=== PATIENT | female | born 1975 | race Caucasian/White ===

== ENCOUNTER → 2016-04-28 | Outpatient (CLI) | payer OTHER ==
[~2016-04-28] MED LIST: ATV/1 PO; CIPR-255 PO; IBUP-1050 PO; LISI-787 PO; LORA-741 PO; MULT1CAP3 PO; OMEP20CA9 PO; OXYC-57 PO; PHEN-876 PO; SULF800T23 PO
--- NOTE | 2016-04-28 14:43 | DIAGNOSTIC IMAGING REPORT ---
LEFT KNEE 4 OR MORE VIEWS CLINICAL HISTORY: Left knee instability and locking. COMPARISON: Left knee radiograph October 11, 2015. FINDINGS: Alignment of the left knee is in anatomic. There is no acute fracture. No osseous lesion is present. There is a suspected left knee joint effusion. Mild narrowing of the patellofemoral compartment is noted. Tricompartmental osteophytosis has increased since prior exam of October 11, 2015. IMPRESSION: 1. No acute fracture. 2. Mild to moderate arthritis of the left knee which has progressed since prior exam. 3. Suspected left knee joint effusion. Electronically signed by: Jerad Goldstein M.D. 04/28/2016 2:42 PM Dictated Date/Time: 04/28/2016 2:41 PM
== END | disposition home or self-care (01) ==
LOC: C.RAD1850 14:06
PROVIDERS: ATTEND Nurse Practitioner Adult Health
DX: M25.362 Other instability, left knee (principal); M23.92 Unspecified internal derangement of left knee; M25.562 Pain in left knee

== ENCOUNTER → 2016-05-16 | Outpatient (CLI) | payer OTHER ==
[2016-05-16 10:40] LABS: BASO % 0.3 %; BASO ABS # 0.03 K/uL (0-0.2); COMPLETE YES; EOS % 2.9 %; HEMATOCRIT 42.8 % (37-47); IG% 0.2 %; LYMPH % 34.7 %; LYMPH ABS # 3.49 K/uL (1.2-3.4); MEAN CELL VOLUME 83.3 fL (80-100); MEAN CORPUSCULAR HEMOGLOBIN 28.8 pg (25-34); MEAN CORPUSCULAR HGB CONC 34.6 g/dl (32-36); MEAN PLATELET VOLUME 9.6 fL (7.4-10.4); NEUT % 56.9 %; PLATELET COUNT 329 K/uL (130-400); RED BLOOD COUNT 5.14 M/uL (4.2-5.4); WHITE BLOOD COUNT 10.06 K/uL (4.8-10.8)
[2016-05-16 12:59] LABS: BLOOD UREA NITROGEN 17 mg/dl (7-18); BUN/CREATININE RATIO 18.2 (10-20); CALCIUM 9.5 mg/dl (8.5-10.1); CARBON DIOXIDE 26 mmol/L (21-32); CHLORIDE 106 mmol/L (98-107); CHOLESTEROL 201 mg/dl (0-200); CREATININE 0.93 mg/dl (0.60-1.20); GLUCOSE 99 mg/dl (70-99); POTASSIUM 3.9 mmol/L (3.5-5.1); SODIUM 141 mmol/L (136-145); TRIGLYCERIDES 109 mg/dl (0-150); VERY LOW DENSITY LIPOPROT CALC 22 mg/dl
[2016-05-16 13:10] LABS: CHOLESTEROL/HDL RATIO 4.4; HDL CHOLESTEROL 46 mg/dl; LDL CHOLESTEROL CALCULATED 133 mg/dl
== END | disposition home or self-care (01) ==
LOC: C.LAB 10:01
PROVIDERS: ATTEND Nurse Practitioner Adult Health
DX: I10 Essential (primary) hypertension (principal); R53.83 Other fatigue; F32.9 Major depressive disorder, single episode, unspecified; Z13.220 Encounter for screening for lipoid disorders

== ENCOUNTER 2016-05-21 10:01 | Emergency (ER) | payer OTHER ==
[~2016-05-21] VITALS: Ht 165.1 cm; Wt 92.6 kg
[~2016-05-21 10:01] MED LIST changes: -ATV/1 PO; -MULT1CAP3 PO; -OMEP20CA9 PO; -OXYC-57 PO
[2016-05-21 10:10] VITALS: TEMP 36.7; Ht 165.1 cm; Wt 92.6 kg
--- NOTE | 2016-05-21 10:28 | EMERGENCY ROOM VISIT NOTE ---
History Report prepared by Ben: Rafael Bhatia Under the Supervision of: Dr. Eris Clements D.O. First contact with patient: 10:18 Chief Complaint: KNEEPAIN Stated Complaint: SEVERE LEFT KNEE PAIN History of Present Illness The patient is a 41 year old female who presents to the Emergency Room with complaints of persistent severe left knee pain. The pain is severe and is worsened with movement of the leg. The patient cannot walk secondary to pain. She also describes shooting pain to her hip. The patient tore her ACL and meniscus 7 years ago, and has had problems with the knee since. She did have knee surgery. The patient does not have a knee immobilizer at home. The patient is scheduled to follow up with [facility] Orthoped[facility] next week. She had an Ativan this morning. Source of History: patient Position: knee (left) Symptom Intensity: severe Quality: other (shooting) Timing: other (persistent) Modifying Factors (Worsening): movement Review of Systems See HPI for pertinent positives and negatives. A total of ten systems were reviewed and were otherwise negative. Past Medical & Surgical Medical Problems: (1) Anxiety (2) Bipolar disorder (3) Bronchitis (4) Clostridium difficile diarrhea (5) Dehydration (6) Depression (7) Diverticulitis (8) Diverticulitis (9) Dizziness (10) Gastroparesis (11) History of colonic diverticulitis (12) History of shingles (13) Influenza (14) Intractable vomiting (15) Nausea & vomiting (16) Nausea, vomiting, and diarrhea (17) Nausea, vomiting, and diarrhea (18) Palpitations (19) Pneumonia (20) Shoulder dislocation Surgical Problems: (1) H/O section (2) H/O left knee surgery (3) Hx of cholecystectomy Family History Diabetes mellitus FH: cancer FH: gallbladder disease FH: lung disease FHx: heart disease Hypertension Social History Smoking Status: Current Every Day Smoker Alcohol Use: none Drug Use: none Marital Status: Housing Status: lives with significant other Occupation Status: employed Current/Historical Medications Scheduled Ibuprofen (Advil), 200-600 MG PO Q4H Lisinopril/Hctz (Zestoretic 20MG/12.5MG), 1 TAB PO DAILY Lorazepam (Ativan), 0.5 MG PO Q6H Allergies Coded Allergies: Prochlorperazine (Verified Allergy, Severe, COMPAZINE, 05/21/16) TONGUE SWELLS, JAW LOCKS Quetiapine (Verified Allergy, Severe, TONGUE SWELLING, 05/21/16) Risperidone (Verified Allergy, Intermediate, , 05/21/16) Ziprasidone (Unverified Allergy, Intermediate, THRUSH, 05/21/16) BEE STING (Verified Allergy, Unknown, severe swelling of limbs and lymphnodes, 05/21/16) Meloxicam (Unverified Allergy, Unknown, rash/lightheaded, 05/21/16) Clavulanic Acid (Verified Adverse Reaction, Mild, VOMITING, 05/21/16) [place] (Unverified Adverse Reaction, Mild, prior OD, 05/21/16) Penicillins (Verified Adverse Reaction, Mild, VOMITING, 05/21/16) augmentin was drug taken when this occured Physical Exam Vital Signs Date Time Temp Pulse Resp B/P Pulse Ox O2 Delivery O2 Flow Rate FiO2 05/21/16 10:10 36.7 107 18 140/74 94 Room Air Physical Exam GENERAL: Awake, alert, well-appearing, in no distress HENT: Normocephalic, atraumatic. Oropharynx unremarkable. EYES: Normal conjunctiva. Sclera non-icteric. NECK: Supple. No nuchal rigidity. FROM. No JVD. RESPIRATORY: Clear to auscultation. CARDIAC: Regular rate, normal rhythm. Extremities warm and well perfused. Pulses equal. ABDOMEN: Soft, non-distended. No tenderness to palpation. No rebound or guarding. No masses. RECTAL: Deferred. MUSCULOSKELETAL: Chest examination reveals no tenderness. The back is symmetrical on inspection without obvious abnormality. There is no CVA tenderness to palpation. No joint edema. LOWER EXTREMITIES: Calves are equal size bilaterally and non-tender. No edema. No discoloration. Mild tenderness of the left knee bilaterally, no anterior drawer, no obvious swelling, no patellar tendon tenderness, quadriceps and patella tendon mechanisms intact, neurovascularly intact distally, no calf tenderness. NEURO: Normal sensorium. No sensory or motor deficits noted. SKIN: No rash or jaundice noted. Medical Decision & Procedures Medications Administered Medications (Trade) Dose Ordered Sig/Dk Route Start Time Stop Time Status Last Admin Dose Admin Oxycodone/ Acetaminophen (Percocet 5-325mg Tab) 1 tab NOW ONCE PO 05/21/16 10:30 05/21/16 10:31 DC 05/21/16 10:30 1 TAB ED Course 1020: The patient was evaluated in room B12b. A complete history and physical exam was performed. 1030: Percocet 5/325 mg tab PO. Medical Decision Differential diagnosis includes sprain, strain, internal derangements of knee, ligamentous injury, tendon injury. This patient has follow-up with orthopedics in [place] on Wednesday. Patient has a prior history of anterior cruciate ligament issues in the left knee and has a prior MRI. Patient's clinical exam does not show any evidence of fracture or quadriceps or patellar tendon mechanism injury. Patient will be placed in a knee immobilizer with pain medicine and with strict follow-up to the orthopedic physician [place] on Wednesday Impression Primary Impression: Sprain of knee Scribe Attestation The scribe's documentation has been prepared under my direction and personally reviewed by me in its entirety. I confirm that the note above accurately reflects all work, treatment, procedures, and medical decision making performed by me. Departure Information Dispostion Home / Self-Care Prescriptions Oxycodone/Acetaminophen 5MG/325MG (PERCOCET 5MG/325MG) Tab 1-2 TAB PO Q4H Y for Pain, #10 TAB Prov: Eris Clements, 05/21/16 Referrals Maris Hernadez CRNP (PCP) Forms HOME CARE DOCUMENTATION FORM, IMPORTANT VISIT INFORMATION, Work Instructions Patient Instructions ED Sprain Knee Collateral Ligaments, My [facility] Work Instructions Return To Work: 3 days Problem Qualifiers Primary Impression: Sprain of knee Encounter type: initial encounter Laterality: left
[2016-05-21] MEDS ORDERED: OXYCODONE/ACETAMINOPHEN 5-325 TAB PO ONE (10:30)
[2016-05-21] MEDS ORDERED: OXYC-57 PO (10:51)
[2016-05-21 11:03] VITALS: BP 136/78; PULSE 90; O2SAT 98
[2017-01-08] MEDS ORDERED: OMEP20CA9 PO (11:56)
[2017-01-08] MEDS ORDERED: ATV/1 PO (11:56)
[2017-01-08] MEDS ORDERED: MULT1CAP3 PO (11:56)
== END 2016-05-21 11:04 | disposition home or self-care (01) ==
LOC: C.EDB 10:05
DX: S83.92XA Sprain of unspecified site of left knee, initial encounter (principal); X58.XXXA Exposure to other specified factors, initial encounter; F41.9 Anxiety disorder, unspecified; F31.9 Bipolar disorder, unspecified; K31.84 Gastroparesis; K57.92 Diverticulitis of intestine, part unspecified, without perforation or abscess without bleeding; F17.200 Nicotine dependence, unspecified, uncomplicated; Z90.49 Acquired absence of other specified parts of digestive tract; Z98.890 Other specified postprocedural states; Z88.0 Allergy status to penicillin; Z88.8 Allergy status to other drugs, medicaments and biological substances; Z91.030 Bee allergy status

== ENCOUNTER → 2016-07-30 | Outpatient (CLI) | payer OTHER ==
[~2016-07-30] MED LIST changes: +ATV/1 PO; -CIPR-255 PO; +MULT1CAP3 PO; +OMEP20CA9 PO; +OXYC-57 PO; -PHEN-876 PO; -SULF800T23 PO
== END | disposition home or self-care (01) ==
LOC: C.LABSPEC 17:24
PROVIDERS: ATTEND Nurse Practitioner Adult Health
DX: R30.0 Dysuria (principal)

== ENCOUNTER 2016-10-29 05:54 | Emergency (ER) | payer OTHER ==
[~2016-10-29] VITALS: Ht 162.6 cm; Wt 93.4 kg
[~2016-10-29 05:54] MED LIST changes: -ATV/1 PO; -MULT1CAP3 PO; -OMEP20CA9 PO
[2016-10-29 05:58] VITALS: BP 151/90; PULSE 104; TEMP 36.7; O2SAT 97; Ht 162.6 cm; Wt 93.4 kg
--- NOTE | 2016-10-29 06:13 | EMERGENCY ROOM VISIT NOTE ---
History Report prepared by Ben: Savannah Chambers Under the Supervision of: Dr. Maria Guadalupe Hernandez D.O. First contact with patient: 06:02 Chief Complaint: EYE PAIN Stated Complaint: LEFT EYE PAIN History of Present Illness The patient is a 41 year old female who presents to the Emergency Room with complaints of constant left eye pain beginning yesterday. The patient describes the pain as a pressure sensation. She notes that she was at work yesterday when she noticed her left eye felt sore. The patient also notes mild swelling around the eye. She is experiencing a sore throat and chills. The patient denies cough , vomiting, nausea, fevers, or a history of diabetes. She does wear glasses for nearsightedness. She has no history of eye trauma. The patient denies pain with movement of the eyes. She has had sinus infections. Source of History: patient Onset: yesterday Position: eye (left) Quality: pressure Timing: constant Associated Symptoms: + chills, + sorethroat, No fevers, No cough, No vomiting Review of Systems See HPI for pertinent positives & negatives. A total of 10 systems reviewed and were otherwise negative. Past Medical & Surgical Medical Problems: (1) Anxiety (2) Bipolar disorder (3) Bronchitis (4) Clostridium difficile diarrhea (5) Dehydration (6) Depression (7) Diverticulitis (8) Diverticulitis (9) Dizziness (10) Gastroparesis (11) History of colonic diverticulitis (12) History of shingles (13) Influenza (14) Intractable vomiting (15) Nausea & vomiting (16) Nausea, vomiting, and diarrhea (17) Nausea, vomiting, and diarrhea (18) Palpitations (19) Pneumonia (20) Shoulder dislocation Surgical Problems: (1) H/O section (2) H/O left knee surgery (3) Hx of cholecystectomy Family History Diabetes mellitus FH: cancer FH: gallbladder disease FH: lung disease FHx: heart disease Hypertension Social History Smoking Status: Current Every Day Smoker Alcohol Use: none Drug Use: none Marital Status: Housing Status: lives with significant other Occupation Status: employed Current/Historical Medications Scheduled Ibuprofen (Advil), 200-600 MG PO Q4H Lisinopril/Hctz (Zestoretic 20MG/12.5MG), 1 TAB PO DAILY Lorazepam (Ativan), 0.5 MG PO Q6H Allergies Coded Allergies: Prochlorperazine (Verified Allergy, Severe, COMPAZINE, 10/29/16) TONGUE SWELLS, JAW LOCKS Quetiapine (Verified Allergy, Severe, TONGUE SWELLING, 10/29/16) Risperidone (Verified Allergy, Intermediate, , 10/29/16) Ziprasidone (Verified Allergy, Intermediate, THRUSH, 10/29/16) [place] (Verified Allergy, Unknown, severe swelling of limbs and lymphnodes, 10/29/16) Meloxicam (Verified Allergy, Unknown, rash/lightheaded, 10/29/16) Clavulanic Acid (Verified Adverse Reaction, Mild, VOMITING, 10/29/16) [place] (Verified Adverse Reaction, Mild, prior OD, 10/29/16) Penicillins (Verified Adverse Reaction, Mild, VOMITING, 10/29/16) augmentin was drug taken when this occured Physical Exam Vital Signs Date Time Temp Pulse Resp B/P (MAP) Pulse Ox O2 Delivery O2 Flow Rate FiO2 10/29/16 05:58 36.7 104 18 151/90 97 Room Air Physical Exam HEENT: Head - Slight fullness in area of left maxillary sinus and slightly tender to palpation in that area. Pupils are equal, round, and reactive to light. Extraocular eye muscles are intact, and sclera are anicteric. There is no scleral injection. There is absolutely no pain with extraocular eye movement. The patient's pain does not seem to be within the orbit or socket of the eye but rather over the left maxilla and zygomatic arch. There are no skin changes noted in that area. Ears - Both TM blocked by cerumen. Nose - moist nasal mucosa without discharge. Mouth - moist buccal mucosa. Oropharynx is nonerythematous and there is no tonsillar exudate or edema noted. Neck: Supple; no JVD, nuchal rigidity, cervical lymphadenopathy. Heart: Regular rate and rhythm. There is a normal S1 and S2 with no murmurs, clicks, or gallops appreciated. Lungs: Clear to auscultation bilaterally with no wheezes, rales, or rhonchi. Abdomen: Soft, completely nontender, nondistended, with good bowel sounds. There are no palpable pulsatile masses or hepatosplenomegaly. There is no guarding, rigidity, or rebound noted. Extremities: No evidence of cyanosis, clubbing, or edema. There are easily palpable peripheral pulses. Skin: warm and dry with good turgor and no rashes. Medical Decision & Procedures ED Course 0603: Past medical records reviewed. The patient was evaluated in room A11. A complete history and physical exam was performed. I suggested that the patient start the antibiotic if she had further signs of sinus infection. She should return here to the ER if she develops any symptoms within the eyelike redness to the eye, drainage from the eye or pain. She was also instructed to return to the ER if she developed a fever. Medical Decision The patient is a 41 year old female who presents to the ED with left eye pain. Differential diagnosis includes sinusitis, periorbital cellulitis, orbital cellulitis. The patient noticed some pain with palpation over the left maxilla and zygomatic arch. She thought there was some swelling in that area. On my physical exam, there is very minimal fullness noted in that area. There is no erythema to the skin or warmth to touch. The eye does not seem to be involved at all. This may represent early acute maxillary sinusitis. The patient and antibiotic in case the symptoms worsen. I chose Levaquin as the patient has an allergy to Augmentin and penicillins. She will get this prescription filled if her symptoms persist. Otherwise, she was directed to rest with her head elevated and use NSAIDs for pain. Once the patient was discharged by nursing staff, they informed me that the patient was unhappy with her care. She told the nurse that she has glaucoma and I talked down to her. I did not recognize the patient as being upset with her care. During my evaluation, I asked her if she had any previous problems with her eyes and she said no. I also asked if she had a family history of eye problems and she said she wasn't sure because she was adopted, She believes that maybe a grandmother had glaucoma. Medication Reconcilliation Current Medication List: was personally reviewed by me Blood Pressure Screening Patient's blood pressure: Elevated blood pressure Blood pressure disposition: Elevated BP felt to be situational Impression Primary Impression: Maxilla pain Scribe Attestation The scribe's documentation has been prepared under my direction and personally reviewed by me in its entirety. I confirm that the note above accurately reflects all work, treatment, procedures, and medical decision making performed by me. Departure Information Dispostion Home / Self-Care Referrals Maris Hernadez CRNP (PCP) Forms HOME CARE DOCUMENTATION FORM, IMPORTANT VISIT INFORMATION, WORK / SCHOOL INSTRUCTIONS Patient Instructions My [facility] Additional Instructions Rest with your head elevated. Motrin- 800mg every 6 hours with food for pain Start antibiotics if you have further signs of sinus infection. Return to the ER for wosening symptoms
[2017-01-08] MEDS ORDERED: MULT1CAP3 PO (11:56)
[2017-01-08] MEDS ORDERED: OMEP20CA9 PO (11:56)
[2017-01-08] MEDS ORDERED: ATV/1 PO (11:56)
== END 2016-10-29 06:22 | disposition home or self-care (01) ==
LOC: C.EDB 05:55 → C.EDA 06:22
DX: H57.12 Ocular pain, left eye (principal); R68.84 Jaw pain; R51 Headache; F31.9 Bipolar disorder, unspecified; F17.210 Nicotine dependence, cigarettes, uncomplicated; F41.9 Anxiety disorder, unspecified; Z88.0 Allergy status to penicillin; Z88.9 Allergy status to unspecified drugs, medicaments and biological substances; Z79.899 Other long term (current) drug therapy

== ENCOUNTER → 2017-01-11 | Day surgery (SDC) | payer OTHER ==
[2017-01-08 11:56] VITALS: Ht 163.2 cm; Wt 90.5 kg
[~2017-01-11] VITALS: Ht 163.2 cm; Wt 90.5 kg
[~2017-01-11] MED LIST changes: +ATV/1 PO; +FENTANYL CITRATE INJ 50 MCG/1 ML 2 ML VIAL ONE; -IBUP-1050 PO; +LIDOCAINE HCL 2% 2 ML VIAL (20MG/ML) ONE; -LORA-741 PO; +MULT1CAP3 PO; +OMEP20CA9 PO; -OXYC-57 PO; +PROPOFOL IV EMULSION 10 MG/ML 20 ML VIAL IV ONE; +SODIUM CHLORIDE 0.9% 500ML 500 ML IV ONE
--- NOTE | 2017-01-11 14:46 | Endo History and Physical ---
History & Physical Date of Service: Jan 11, 2017. Chief Complaint: Dyshagia, wt loss, vomiting Referring Physician: Danae Matthews History of Present Illness 41 yo CF who presents for EGD secondary to dysphagia, weight loss and vomiting. Past Surgical History Hx Cardiac Surgery: No Hx Internal Defibrillator: No Hx Pacemaker: No Hx Abdominal Surgery: Yes (SALINA, X 3, LOWER ABDOMINAL HERNIA WITH MESH) Hx of Implantable Prosthesis: No Hx Post-Op Nausea and Vomiting: Yes Hx Cancer Surgery: No Hx Thoracic Surgery: No Hx Orthopedic: Yes (LEFT KNEE ARTHROSCOPY) Hx Urinary Tract Surgery: No Family History None Social History Smoking Status: Current Every Day Smoker Hx Substance Use: No Hx Alcohol Use: No Allergies Coded Allergies: Prochlorperazine (Verified Allergy, Severe, COMPAZINE, 01/08/17) TONGUE SWELLS, JAW LOCKS Quetiapine (Verified Allergy, Severe, TONGUE SWELLING, 01/08/17) Risperidone (Verified Allergy, Intermediate, , 01/08/17) Ziprasidone (Verified Allergy, Intermediate, THRUSH, 01/08/17) Amoxicillin (Verified Allergy, Unknown, GI SYMPTOMS, 01/08/17) BEE [place] (Verified Allergy, Unknown, severe swelling of limbs and lymphnodes, 01/08/17) Meloxicam (Verified Allergy, Unknown, rash/lightheaded, 01/08/17) Clavulanic Acid (Verified Adverse Reaction, Mild, VOMITING, 01/08/17) [place] (Verified Adverse Reaction, Mild, prior OD, 01/08/17) Penicillins (Verified Adverse Reaction, Mild, VOMITING, 01/08/17) augmentin was drug taken when this occured Current Medications Reported Home Medications Medications Dose Route/Sig Max Daily Dose Days Date Category Womens Multi (Multiple Vitamins W/ Minerals) 1 Cap Cap 1 Cap PO QAM 01/08/17 Reported Prilosec (Omeprazole) 20 Mg Cap 20 Mg PO BID 01/08/17 Reported Ativan (Lorazepam) 1 Mg Tab 1 Mg PO DAILY PRN 01/08/17 Reported Zestoretic 20MG/12.5MG (HCTZ/Lisinopril) Tab 1 Tab PO HS 11/05/14 Reported Vital Signs Weight (Kilograms): 90.45 Height (Feet): 5 Height (Inches): 4.25 Date Time Temp Pulse Resp B/P (MAP) Pulse Ox O2 Delivery O2 Flow Rate FiO2 01/11/17 14:19 36.5 68 20 118/63 (81) 94 Room Air Physical Exam General Appearance: WD/WN, no apparent distress Respiratory/Chest: Auscultation: breath sounds normal Cardiovascular: Heart Auscultation: RRR Abdomen: Bowel Sounds: normal Inspection & Palpation: soft, non-distended, no tenderness, guarding & rebound Assessment and Plan Assessment: 41 yo CF who presents for EGD secondary to dysphagia, weight loss and vomiting. Plan: Proceed with EGD.
[2017-01-11 15:24] VITALS: BP 126/62; PULSE 97; O2SAT 98
--- NOTE | 2017-01-11 15:37 | Discharge Instructions ---
Endoscopy Patient Instructions Date / Procedure(s) Performed Jan 11, 2017. EGD Allergy Information Coded Allergies: Prochlorperazine (Verified Allergy, Severe, COMPAZINE, 01/08/17) TONGUE SWELLS, JAW LOCKS Quetiapine (Verified Allergy, Severe, TONGUE SWELLING, 01/08/17) Risperidone (Verified Allergy, Intermediate, , 01/08/17) Ziprasidone (Verified Allergy, Intermediate, THRUSH, 01/08/17) Amoxicillin (Verified Allergy, Unknown, GI SYMPTOMS, 01/08/17) BEE [place] (Verified Allergy, Unknown, severe swelling of limbs and lymphnodes, 01/08/17) Meloxicam (Verified Allergy, Unknown, rash/lightheaded, 01/08/17) Clavulanic Acid (Verified Adverse Reaction, Mild, VOMITING, 01/08/17) [place] (Verified Adverse Reaction, Mild, prior OD, 01/08/17) Penicillins (Verified Adverse Reaction, Mild, VOMITING, 01/08/17) augmentin was drug taken when this occured Discharge Date / Findings Jan 11, 2017. Esophageal stricture s/p dilation Gastritis s/p biopsies Medication Instructions OK to resume all medications today as prescribed Reported Home Medications Medications Dose Route/Sig Max Daily Dose Days Date Category Womens Multi (Multiple Vitamins W/ Minerals) 1 Cap Cap 1 Cap PO QAM 01/08/17 Reported Prilosec (Omeprazole) 20 Mg Cap 20 Mg PO BID 01/08/17 Reported Ativan (Lorazepam) 1 Mg Tab 1 Mg PO DAILY PRN 01/08/17 Reported Zestoretic 20MG/12.5MG (HCTZ/Lisinopril) Tab 1 Tab PO HS 11/05/14 Reported Provider Instructions Activity Restrictions - No exercising or heavy lifting for 24 hours. - Do not drink alcohol the day of the procedure. - Do not drive a car or operate machinery until the day after the procedure. - Do not make any important decisions or sign important papers in 24 hours after the procedure. Following Day: - Return to full activity which may include returning to work/school. Diet Start your diet with liquids and light foods (jello, soup, juice, toast). Then eat your usual diet if not nauseated. Treatment For Common After Affects For mild abdominal pain, bloating, or excessive gas: - Rest - Eat lightly - Lie on right side Follow-Up Information Follow-up with Danae Matthews as scheduled Anesthesia Information What You Should Know You have had a procedure that required some medicine to reduce anxiety and discomfort. This treatment is called moderate sedation. After receiving the treatment, you may be sleepy, but you will be able to breathe on your own. The effects of the treatment may last for several hours. Follow these instructions along with Activity/Diet recommendations noted above: * Do NOT do anything where dizziness or clumsiness would be dangerous. * Rest quietly at home today, then you can be up and about tomorrow. * Have a responsible person stay with you the rest of today. * You may have had an I.V. today. If so, you may take the dressing off later today. Recommendations Call your doctor if: * Trouble breathing * Continuous vomiting for more than 24 hours * Temperature above 101 degrees * Severe abdominal pain or bloating * Pain not relieved by pain medicine ordered * There is increased drainage or redness from any incision * A large amount of rectal bleeding greater than 2-3 tablespoons. (If you had a polyp/s removed or have hemorrhoids, a small amount of blood - from the rectum is to be expected.) * You have any unanswered questions or concerns. IN THE EVENT OF A SERIOUS EMERGENCY, GO TO THE NEAREST EMERGENCY ROOM Your discharge instructions were prepared by provider Manjinder Ross. Patient Instructions Signature Page Yoana Weinstein Patient (or Guardian) Signature/Date: I have read and understand the instructions given to me by my caregivers. Caregiver/RN/Doctor Signature/Date: The above-named patient and/or guardian has received patient instructions on this date. + Original Patient Signature Page (only) stays with chart. Please make copy for patient.
--- NOTE | 2017-01-11 15:41 | Anesthesiology Progress Note ---
Anesthesia Post Op Note Date & Time Jan 11, 2017 at 15:40 Vital Signs Vital Signs Past 12 Hours Date Time Temp Pulse Resp B/P (MAP) Pulse Ox O2 Delivery O2 Flow Rate FiO2 01/11/17 14:19 36.5 68 20 118/63 (81) 94 Room Air Notes Mental Status: alert / awake / arousable, participated in evaluation Pt Amnestic to Procedure: Yes Nausea / Vomiting: adequately controlled Pain: adequately controlled Airway Patency, RR, SpO2: stable & adequate BP & HR: stable & adequate Hydration State: stable & adequate Anesthetic Complications: no major complications apparent
--- NOTE | 2017-01-11 15:42 | GI REPORT ---
Procedure Date: 01/11/2017 3:12 PM Procedure: Upper GI endoscopy Indications: Dysphagia Medicines: Monitored Anesthesia Care Complications: No immediate complications. Estimated Blood Loss: Estimated blood loss: none. Procedure: Pre-Anesthesia Assessment: - Prior to the procedure, a History and Physical was performed, and patient medications and allergies were reviewed. The patient's tolerance of previous anesthesia was also reviewed. The risks and benefits of the procedure and the sedation options and risks were discussed with the patient. All questions were answered, and informed consent was obtained. Prior Anticoagulants: The patient has taken no previous anticoagulant or antiplatelet agents. ASA Grade Assessment: II - A patient with mild systemic disease. After reviewing the risks and benefits, the patient was deemed in satisfactory condition to undergo the procedure. After obtaining informed consent, the endoscope was passed under direct vision. Throughout the procedure, the patient's blood pressure, pulse, and oxygen saturations were monitored continuously. The Scope was introduced through the mouth, and advanced to the second part of duodenum. The upper GI endoscopy was accomplished without difficulty. The patient tolerated the procedure well. Findings: One moderate benign-appearing, intrinsic stenosis was found. This measured 1.6 cm (inner diameter) x less than one cm (in length) and was traversed. A TTS dilator was passed through the scope. Dilation with an 18-19-20 mm balloon (to a maximum balloon size of 20 mm) dilator was performed. The dilation site was examined and showed moderate improvement in luminal narrowing. Localized mild inflammation characterized by erythema was found in the gastric antrum. Biopsies were taken with a cold forceps for histology. The examined duodenum was normal. Impression: - Benign-appearing esophageal stenosis. Dilated. - Gastritis. Biopsied. - Normal examined duodenum. Recommendation: - Resume previous diet. - Continue present medications. - Await pathology results. - Return to primary care physician as previously scheduled. Manjinder Ross, 01/11/2017 3:41:52 PM This report has been signed electronically. Note Initiated On: 01/11/2017 3:12 PM I attest to the content of the Intraoperative Record and orders documented therein, exceptions below
== END | disposition home or self-care (01) ==
LOC: C.GI 13:37
PROVIDERS: ATTEND Internal Medicine
DX: K22.2 Esophageal obstruction (principal); K29.70 Gastritis, unspecified, without bleeding; F17.200 Nicotine dependence, unspecified, uncomplicated; Z79.899 Other long term (current) drug therapy

== ENCOUNTER → 2017-04-23 | Outpatient (CLI) | payer OTHER ==
[~2017-04-23] MED LIST changes: -FENTANYL CITRATE INJ 50 MCG/1 ML 2 ML VIAL ONE; -LIDOCAINE HCL 2% 2 ML VIAL (20MG/ML) ONE; -PROPOFOL IV EMULSION 10 MG/ML 20 ML VIAL IV ONE; -SODIUM CHLORIDE 0.9% 500ML 500 ML IV ONE
--- NOTE | 2017-04-23 11:35 | DIAGNOSTIC IMAGING REPORT ---
THYROID ULTRASOUND CLINICAL HISTORY: Enlarged thyroid. COMPARISON STUDY: None. TECHNIQUE: Sonography of the thyroid gland was performed. FINDINGS: The right thyroid lobe measures 4.4 x 1.4 x 1.5 cm and the left lobe measures 3.7 x 1.5 x 1.2 cm. The isthmus measures 0.2 cm in thickness. There are no suspicious thyroid nodules. Note is made of a 2 mm cystic lesion within the right isthmus junction and a 4 mm cystic lesion within the left inferior thyroid lobe. These represent colloid cysts. IMPRESSION: 1. Several small colloid cysts. No suspicious thyroid nodules. 2. Normal size thyroid gland. Electronically signed by: Jerad Goldstein M.D. 04/23/2017 11:34 AM Dictated Date/Time: 04/23/2017 11:24 AM
== END | disposition home or self-care (01) ==
LOC: C.ULTR 10:09
PROVIDERS: ATTEND Family Medicine
DX: E04.2 Nontoxic multinodular goiter (principal)

== ENCOUNTER → 2017-06-09 | Outpatient (CLI) | payer OTHER ==
[2017-06-09 12:18] LABS: BLOOD UREA NITROGEN 14 mg/dl (7-18); CALCIUM 9.4 mg/dl (8.5-10.1); CARBON DIOXIDE 28 mmol/L (21-32); CREATININE 0.72 mg/dl (0.60-1.20); GLUCOSE 97 mg/dl (70-99); POTASSIUM 3.7 mmol/L (3.5-5.1); SODIUM 138 mmol/L (136-145)
== END | disposition home or self-care (01) ==
LOC: C.LAB 09:47
PROVIDERS: ATTEND Family Medicine
DX: I10 Essential (primary) hypertension (principal); E83.52 Hypercalcemia

== ENCOUNTER → 2017-08-05 | Day surgery (SDC) | payer OTHER ==
[2017-07-29 09:21] VITALS: Ht 162.6 cm; Wt 90.9 kg
--- NOTE | 2017-08-03 15:48 | History and Physical: Surg Cnt ---
History & Physical Date Aug 03, 2017. 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 Past Medical/Surgical History Medical Problems: (1) Anxiety (2) Bipolar disorder (3) Bronchitis (4) Clostridium difficile diarrhea (5) Dehydration (6) Depression (7) Diverticulitis (8) Diverticulitis (9) Dizziness (10) Gastroparesis (11) History of colonic diverticulitis (12) History of shingles (13) Influenza (14) Intractable vomiting (15) Nausea & vomiting (16) Nausea, vomiting, and diarrhea (17) Nausea, vomiting, and diarrhea (18) Palpitations (19) Pneumonia (20) Shoulder dislocation Surgical Problems: (1) H/O section (2) H/O left knee surgery (3) Hx of cholecystectomy Additional History Hepatic Disease: No Endocrine Disorder: No Kidney Disease: No Hypertension: No Heart Disease: No Bleeding Tendencies: No Infectious Diseases: No Allergies Coded Allergies: Prochlorperazine (Verified Allergy, Severe, COMPAZINE, 07/29/17) TONGUE SWELLS, JAW LOCKS Quetiapine (Verified Allergy, Severe, TONGUE SWELLING, 07/29/17) BEE STING (Verified Allergy, Unknown, severe swelling of limbs and lymphnodes, 07/29/17) Hydrocodone (Verified Allergy, Unknown, ITCHING, 07/29/17) Meloxicam (Verified Allergy, Unknown, rash/lightheaded, 07/29/17) Risperidone (Unverified Adverse Reaction, Intermediate, , 08/03/17 ) Ziprasidone (Unverified Adverse Reaction, Intermediate, THRUSH, 08/03/17) Clavulanic Acid (Verified Adverse Reaction, Mild, VOMITING, 07/29/17) [place] (Verified Adverse Reaction, Mild, prior OD, 07/29/17) Penicillins (Verified Adverse Reaction, Mild, VOMITING, 07/29/17) augmentin was drug taken when this occured Amoxicillin (Unverified Adverse Reaction, Unknown, GI SYMPTOMS, 08/03/17) Home Medications Scheduled Ergocalciferol (Vitamin D 78914 Unit), 50,000 UNIT PO WK Lisinopril/Hctz (Zestoretic 20MG/12.5MG), 1 TAB PO HS Multiple Vitamins W/ Minerals (Womens Multi), 1 CAP PO QAM Omeprazole (Prilosec), 20 MG PO BID Scheduled PRN Lorazepam (Ativan), 1 MG PO DAILY PRN for Anxiety Physical Examination Skin: warm/dry, no rash Eyes: normal inspection, EOMI, sclerae normal ENT: + pertinent finding (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
[~2017-08-05] VITALS: Ht 162.6 cm; Wt 90.9 kg
[~2017-08-05] MED LIST changes: +ATROPINE SULFATE 0.1 MG/ML 5ML SYR IV PRN; +BACITRACIN OINT 15 GM TUBE ONE; +CEFAZOLIN 2000MG IV PUSH 15 ML IV SCH; +CHECK SCOPOLAMINE PATCH PLACEMENT SCH; +DEXAMETHASONE SOD INJ 4 MG/ML VIAL IV PRN; +DEXAMETHASONE SOD INJ 4 MG/ML VIAL ONE; +ERGO500037 PO; +EpHEDrine SULFATE INJ 50 MG/ML AMP IV PRN; +EpINEphrine INJ 1MG/ML AMP 1 MG/ML AMP ONE; +FENTANYL CITRATE INJ 50 MCG/1 ML 2 ML VIAL IV PRN; +FENTANYL CITRATE INJ 50 MCG/1 ML 2 ML VIAL ONE; +GELATIN SPONGE 12-7MM ONE; +GLYCOPYRROLATE INJ 0.2 MG/ML VIAL ONE; +KETOROLAC TROMETHAMINE 30 MG/ML VIAL IV. PRN; +LABETALOL HCL IV 5 MG/ML 20ML IV PRN; +LACTATED RINGER'S 1000ML 1,000 ML IV SCH; +LIDO 2%/EPINEPHRINE 1:100000 20 ML VIAL INFIL ONE; +LIDOCAINE 4% MPF SOAK 5 ML = 1 DOSE TOP ONE; +LIDOCAINE HCL 2% 2 ML VIAL (20MG/ML) ONE; +METOCLOPRAMIDE HCL INJ 5 MG/ML 2 ML VIAL IV PRN; +MIDAZOLAM HCL 1 MG/ML 2ML VIAL ONE; +MoRPHine SULFATE 10 MG/ML CARP/VIAL IV PRN; +MoRPHine SULFATE 2 MG/ML CARP IV PRN; +NEOSTIGMINE METHYLSULFATE 5 MG/5 ML SYR ONE; +ONDANSETRON INJ 2 MG/ML 2 ML VIAL IV PRN; +ONDANSETRON INJ 2 MG/ML 2 ML VIAL ONE; +PHENYLEPHRINE 100MCG/ML 5ML SYR IV PRN; +PROPOFOL IV EMULSION 10 MG/ML 20 ML VIAL IV ONE; +ROCURONIUM BROMIDE 10 MG/ML 5 ML VIAL IV ONE; +SCOPOLAMINE 1.5 MG TDSY TD ONE; +SCOPOLAMINE 1.5 MG TDSY TD SCH; +SODIUM CHLORIDE 0.9% 1000ML 1,000 ML IV SCH; +TRAM-10 PO
--- NOTE | 2017-08-05 10:02 | History & Physical Bridge Note ---
H&P Re-Evaluation Bridge Note: I have examined the patient, reviewed the History & Physical and in the interval since the performance of the History & Physical I have noted the following changes of clinical significance: No changes noted
--- NOTE | 2017-08-05 10:05 | Discharge Instructions-SurgCtr ---
Discharge Instructions Date of Service Aug 05, 2017. Visit Reason for Visit: Right Vocal Cord Polyp, Septal Deviation Discharge Discharge Diagnosis / Problem: same Discharge Goals Goal(s): Improve function Activity Recommendations Activity Limitations: resume your previous activity Anesthesia . Post Anesthesia Instructions: If you have had General Anesthesia or IV Sedation: * Do not drive today. * Resume driving when surgeon permits. * Do not make important decisions or sign legal documents today. * Call surgeon for: 1. Temperature elevations greater than 101 degrees F. 2. Uncontrollable pain. 3. Excessive bleeding. 4. Persistent nausea and vomiting. 5. Medication intolerance (nausea, vomiting or rash). * For nausea and vomiting use only clear liquids such as: tea, soda, bouillon until nausea subsides, then gradually increase diet as tolerated. * If you have any concerns or questions, call your surgeon's office. If physician is unavailable and it is an emergency, call 911 or go to the nearest emergency room. . Instructions / Follow-Up Instructions / Follow-Up ACTIVITY RECOMMENDATIONS: * Being up and around is good, but no strenuous activity, heavy lifting or physical exertion for one week. * Keep your head elevated 30 degrees when lying down or sleeping. * Do not blow your nose for 48 hours, sniff back instead. * Avoid hot showers. OVER THE COUNTER MEDICATIONS: * You may use Tylenol * Avoid aspirin or aspirin containing products, e.g. as they may increase bleeding. SPECIAL CARE INSTRUCTIONS: * Expect to have bloody drainage from your nose and/or down your throat for one to three days. Change drip pad as needed. * Begin irrigating your nose with saline solution today, at least six to ten times per day and sniff back to help remove old clots or crust. * You may experience nasal and facial congestion, pain and pressure, this is normal. * Please call with any significant and/or progressive pain, redness, swelling around the eyes, visual changes, fever of 101.5 degrees F, active bleeding or any problems or concerns. * If active bleeding occurs, spray the nose three times at one minute intervals with Afrin spray and call or cell phone: . If unable to reach the doctor, go to the nearest Emergency Department. Special Diet: * Avoid extremely hot fluids. FOLLOW UP VISIT: Follow-up Visit with Dr. Elam If not already scheduled, please call to schedule. Diet Recommendations Home Diet: no limitations Pending Studies Studies pending at discharge: no Medical Emergencies . Who to Call and When: Medical Emergencies: If at any time you feel your situation is an emergency, please call 911 immediately. . Non-Emergent Contact Non-Emergency issues call your: Primary Care Provider . . "Provider Documentation" section prepared by Jeanette Elam. . [place] Drug Monitoring Program Search Results: no issues identified
[2017-08-05 11:56] VITALS: TEMP 36.7
[2017-08-05 12:21] VITALS: BP 141/74; PULSE 52; O2SAT 95
--- NOTE | 2017-08-05 12:25 | Anesthesia Progress Nt - [facility] ---
Anesthesia Post Op Note Date & Time Aug 05, 2017 at 12:24 Vital Signs Pain Intensity: 0 Vital Signs Past 12 Hours Date Time Temp Pulse Resp B/P (MAP) Pulse Ox O2 Delivery O2 Flow Rate FiO2 08/05/17 12:21 52 16 141/74 (96) 95 Room Air 08/05/17 11:56 36.7 52 16 134/82 (99) 96 Room Air 08/05/17 11:51 125/83 08/05/17 11:49 60 20 08/05/17 11:49 61 20 97 08/05/17 11:48 57 16 98 08/05/17 11:48 58 16 08/05/17 11:46 128/70 08/05/17 11:46 36.5 54 16 128/70 95 Room Air 08/05/17 11:43 60 16 08/05/17 11:43 60 16 98 08/05/17 11:42 57 15 98 08/05/17 11:42 57 15 08/05/17 11:41 127/78 08/05/17 11:37 66 17 98 08/05/17 11:37 68 17 08/05/17 11:36 113/80 08/05/17 11:33 55 8 98 08/05/17 11:33 56 8 08/05/17 11:31 119/74 08/05/17 11:28 61 19 99 08/05/17 11:28 62 19 08/05/17 11:26 122/77 08/05/17 11:25 123/71 08/05/17 11:23 55 15 08/05/17 11:23 57 15 100 08/05/17 11:21 86/76 08/05/17 11:18 63 17 08/05/17 11:18 64 17 100 08/05/17 11:16 121/60 08/05/17 11:13 60 20 08/05/17 11:13 59 20 100 08/05/17 11:11 114/78 08/05/17 11:08 67 18 08/05/17 11:08 67 18 99 08/05/17 11:06 134/76 08/05/17 11:03 77 18 100 08/05/17 11:03 78 18 08/05/17 11:01 134/91 08/05/17 11:00 124/91 08/05/17 10:58 99 21 174/109 99 08/05/17 10:58 99 21 08/05/17 10:58 36.7 99 16 174/109 99 Humidified Oxygen 6 Diffusion Mask 08/05/17 09:01 36.4 71 16 135/80 (98) 97 Room Air Notes Mental Status: alert / awake / arousable, participated in evaluation Pt Amnestic to Procedure: Yes Nausea / Vomiting: adequately controlled Pain: adequately controlled Airway Patency, RR, SpO2: stable & adequate BP & HR: stable & adequate Hydration State: stable & adequate Anesthetic Complications: no major complications apparent
--- NOTE | 2017-08-05 14:15 | OPERATIVE REPORT ---
DATE OF OPERATION: 08/05/2017 PREOPERATIVE DIAGNOSES: Septal deviation and right vocal cord polyp. POSTOPERATIVE DIAGNOSES: Same. PROCEDURE: Direct laryngoscopy with micro excision of right vocal cord polyp and endoscopic septoplasty. SURGEON: Jeanette Elam MD ANESTHESIA: General endotracheal. COMPLICATIONS: None. BLOOD LOSS: 10 mL. HISTORY OF PRESENT ILLNESS: This 42-year-old lady presented with persistent hoarseness, found to have a large right vocal cord polyp. She also has significant septal deviation to the left with obstruction. DESCRIPTION OF PROCEDURE: The patient brought to the operating room and placed in supine position. General endotracheal anesthesia was induced, prepped and draped in a usual sterile manner. The Dedo laryngoscope was used. Suspension and microlaryngoscopy was performed. Epiglottis, vallecula, pyriform sinus areas were normal. The endolarynx showed a large right vocal cord polyp, which was edematous and reddish. The microscope was used and the right vocal cord was grasped with upbiting cup forceps and the polyp was excised using the cup forceps and upbiting scissors, preserving the mucosa at the leading edge of the vocal cord excising the polyp from posteriorly to anteriorly. The laryngoscope was withdrawn and attention was turned to the nose. Endoscopic septoplasty was performed using the 0 degree endoscope visualizing the septum, which was injected with 2% Xylocaine with 1:100,000 strength epinephrine. The incision was made along the spur projecting to the left from posteriorly to anteriorly using the 15 blade and then elevating superior and inferior tunnels to isolate the spur and then removing the spur using the 15 blade and the Morgan dissector and the Bautista forceps via superior inferior tunnels and via bilateral posterior tunnels. This returned the septum to the midline. The septum was packed with a single piece of Gelfoam. The patient tolerated the procedure well and was taken to recovery area in satisfactory condition. I attest to the content of the Intraoperative Record and any orders documented therein. Any exception s are noted below.
== END | disposition home or self-care (01) ==
LOC: X.SURG 08:28
PROVIDERS: ATTEND Otolaryngology
DX: J34.2 Deviated nasal septum (principal); J38.1 Polyp of vocal cord and larynx; I10 Essential (primary) hypertension; K21.9 Gastro-esophageal reflux disease without esophagitis; F17.200 Nicotine dependence, unspecified, uncomplicated

== ENCOUNTER 2020-02-20 16:05 | Observation (INO) ==
[2020-02-20] MEDS ORDERED: diphenhydrAMINE 50 MG/ML VIAL IV STA (16:34)
[2020-02-20] MEDS ORDERED: ONDANSETRON INJ 2 MG/ML 2 ML VIAL IV STA (16:34)
[2020-02-20] MEDS ORDERED: ALBUTEROL HFA 8 GM INHALER INH ONE (16:34)
[2020-02-20] MEDS ORDERED: SODIUM CHLORIDE 0.9% 1000ML 500 ML IV ONE ×2 (16:34→18:19)
--- NOTE | 2020-02-20 16:47 | Emergency Department Note ---
Impression & Plan SOB (shortness of breath), Pneumonia, Acute thoracic back pain, Failure of outpatient treatment ED Provider Note NAME: CRISTOBAL MARTINEZ AGE: 45 SEX: F : 1975 ARRIVES VIA: Walk-In INFORMANT: [Patient] ED PROVIDER(S): [Mohan Garcia MD] CHIEF COMPLAINT: Shortness of breath and thoracic pain HISTORY OF PRESENT ILLNESS: The patient is a 45-year-old female who has had thoracic back pain for around 10 days. Initially, she thought she pulled a muscle. It was only one-sided. She saw her doctor who put her on Diclofenac and Flexeril. This really did not help much. She was in the ED on February 16, 3 days ago. She was found to have bilateral opacities on chest CT, there was no PE. Her Covid test was negative. She was discharged with prednisone and doxycycline. The patient had initially consented to a hospital stay but they decided to go home. Since she was not hypoxic, a discharge home was felt reasonable. Patient states that the pain in the thoracic area is now bilateral. It is worse with movement. She feels more short of breath especially with exertion. She has had some chills although no documented fever. Yesterday, she had diarrhea, none today. She has not had any vomiting. Patient states the pain is a 7 on a scale of 1-10. She called her doctor today. She saw the doctor's office via televisit. She was referred back to the ED. REVIEW OF SYSTEMS: See HPI for pertinent positives and negatives. A total of ten systems were reviewed and were otherwise negative. PMHx/PSHx: See Below SOCIAL HISTORY: See Below. PHYSICAL EXAM: GENERAL: Patient is in mild distress from pain. HEENT: No acute trauma, normocephalic atraumatic, mucous membranes moist, no nasal congestion, no scleral icterus. NECK: No stridor, no adenopathy, no meningismus, trachea is midline. LUNGS: She is in some mild respiratory distress, there is no wheezing. Her breath sounds are diminished bilaterally. HEART: Tachycardic, regular rhythm, no murmurs. ABDOMEN: Soft, nontender, bowel sounds positive, no hernias, no peritonitis. EXTREMITIES: No cyanosis or edema, full range of motion of all the joints without pain or difficulty, no signs for acute trauma. NEUROLOGIC: Oriented x 3, no acute motor or sensory deficits, no focal weakness. SKIN: No rash, no jaundice, no diaphoresis. DIFFERENTIAL DIAGNOSIS: Reactive airway disease, pneumonia, pneumothorax, COPD, influenza, Covid, CHF, infections, cardiac ischemia, pulmonary embolism, musculoskeletal, gastrointestinal, as well as other pathologies. EMERGENCY DEPARTMENT COURSE/PROCEDURES: ECG: Indication was tachycardia and shortness of breath. The ECG shows a sinus tachycardia with a rate of 101. There is no ST elevation, no PVCs. The QTc is 456. Continuous Cardiac Monitoring: An order was placed for continuous cardiac monitoring. The monitor shows a rate of 75 with normal sinus rhythm. Critical Care Note: I have personally spent 38 minutes of critical care time in the direct management of this patient. This includes bedside care, interpretation of diagnostic studies, and testing, discussion with consultants, patient, and family members, and other required patient management activities. This 38 minutes is in excess of all separately billable procedures. MEDICAL DECISION MAKING: There is a moderate leukocytosis at 16,000, the value today is higher than it was with her last visit. There is a normal hemoglobin and platelet count. There is no coagulopathy. VBG does not show acidosis or significant hypoxia. No significant electrolyte abnormality or kidney failure. Lactic acid level was not elevated making sepsis less likely. There was no liver enzyme elevation. ECG showed a sinus tachycardia, no acute ischemia. Cardiac enzyme testing x1 is not consistent with acute cardiac injury. Coronavirus testing returned neg ative. Bio fire testing returned negative. Chest film shows what appears to be a developing a left lung infiltrate. There is no pneumothorax. The patient looked uncomfortable on exam. She was in some mild distress. She received IV saline for hydration, 1 L was given. She was given IV Zofran for nausea, IV morphine for pain. She received IV ceftriaxone and IV Benadryl. She was given albuterol via MDI. The patient is improved. Her vital signs are improved, she seems more comfortable. The patient has a bilateral pneumonia diagnosed on CT a few days ago. She is not doing well as an outpatient. The steroids and doxycycline have not helped. She feels worse. I do think hospitalization is warranted. I spoke to the patient and case management. The on-call hospitalist was consulted. Past Med/Surg History Medical History Anxiety Bipolar disorder Depression Diverticulitis Gastroparesis GERD (gastroesophageal reflux disease) Herpes zoster Hypertension Mood disorder Osteoarthritis Pneumonia Suicidal ideation Surgical History History of arthroscopy LEFT History of bilateral tubal ligation History of delivery X 3 History of cholecystectomy History of colonoscopy History of endoscopic sinus surgery History of esophagogastroduodenoscopy (EGD) History of herniorrhaphy History of left knee surgery History of nasal septoplasty History of tooth extraction Nausea and vomiting after administration of anesthetic agent Vocal cord polyp REMOVED Family History Father Alcohol abuse Diabetes Cardiac disorder Hypertension Prostate cancer Brother Drug abuse Alcohol abuse Mother Family history of diabetes mellitus Bipolar disorder Anxiety Depression Aunt Breast cancer Leukemia Grandfather Lung disease Social History Smoking Status: Current every day smoker Tobacco Type: Cigarettes Cigarettes Per Day: 2 PACKS WEEKLY; Second Hand Exposure: No; Hx Alcohol Use: No Hx Substance Use: No Preferred Language: Northern Irish Communication Ability: Effective Canoe Maker Required: No Beliefs That Will Affect Care: None Current Living Situation: Spouse Feels Safe at Home: Yes Assistive Devices: Glasses Allergies Allergies Allergy/AdvReac Type Severity Reaction Status Date / Time acetaminophen [From Vicodin] Allergy Severe itching Unverified 02/20/20 19:09 prochlorperazine Allergy Severe COMPAZINE Verified 02/20/20 19:09 quetiapine Allergy Severe TONGUE Verified 02/20/20 19:09 SWELLING tramadol Allergy Severe ITCHING Unverified 02/20/20 19:09 bee venom protein (honey bee) Allergy Unknown severe Verified 02/20/20 19:09 swelling of limbs and lymphnodes hydrocodone Allergy Unknown ITCHING Verified 02/20/20 19:09 meloxicam Allergy Unknown rash/lighth Verified 02/20/20 19:09 eaded risperidone AdvReac Intermediate Verified 02/17/20 19:53 ziprasidone AdvReac Intermediate THRUSH Verified 02/20/20 19:09 clavulanic acid AdvReac Mild VOMITING Verified 02/20/20 19:09 lithium AdvReac Mild prior OD Verified 02/17/20 19:53 Penicillins AdvReac Mild VOMITING Verified 02/17/20 19:53 amoxicillin AdvReac Unknown GI SYMPTOMS Verified 02/17/20 19:53 Home Meds Home Medications Medication Instructions Recorded Confirmed lorazepam 1 mg PO DAILY PRN 01/06/18 02/20/20 multivitamin 1 cap PO 3XWK 01/06/18 02/20/20 cholecalciferol (vitamin D3) 5,000 unit PO QAM 01/25/19 02/20/20 [Vitamin D3] fluticasone propionate 1 spray INTRANASAL BID PRN 01/25/19 02/20/20 cyclobenzaprine 10 mg PO HS PRN 02/17/20 02/20/20 linagliptin [Tradjenta] 5 mg PO QAM 02/17/20 02/20/20 losartan-hydrochlorothiazide 1 tab PO PM 02/17/20 02/20/20 potassium chloride 10 meq PO QAM 02/17/20 02/20/20 zinc 0 mg PO .TODAY 02/20/20 02/20/20 Previous Rx's Medication Instructions Recorded doxycycline hyclate 100 mg PO BID 7 Days #14 cap 02/18/20 prednisone 60 mg PO DAILY 5 Days #15 tab 02/18/20 Results & Data (ED) Vital Signs Vital Signs - 24 hr 02/20/20 16:14 02/20/20 17:25 02/20/20 17:29 Temperature 37 C Temperature Source Oral Pulse Rate 118 H 92 H Pulse Rate from SpO2 Sensor Respiratory Rate 22 26 H Respiratory Effort / Characteristics Spontaneous Respiratory Depth Normal Respiratory Pattern Regular Blood Pressure 189/112 H 171/88 H Blood Pressure Mean 137 107 Blood Pressure Position Sitting Pulse Oximetry 96 95 97 Oxygen Delivery Method Room Air Room Air Room Air Sepsis Recent Fever Within 48 Hours Yes Sepsis New/Unexplained Change in Mental Status N/A Sepsis Action Taken by Nursing No Action Required 02/20/20 17:38 02/20/20 17:39 02/20/20 18:00 Temperature Temperature Source Pulse Rate 82 Pulse Rate from SpO2 Sensor 82 Respiratory Rate 14 Respiratory Effort / Characteristics Spontaneous Respiratory Depth Respiratory Pattern Blood Pressure Blood Pressure Mean Blood Pressure Position Pulse Oximetry 95 95 Oxygen Delivery Method Room Air Sepsis Recent Fever Within 48 Hours Sepsis New/Unexplained Change in Mental Status Sepsis Action Taken by Nursing 02/20/20 18:35 02/20/20 19:01 02/20/20 19:30 Temperature Temperature Source Pulse Rate 89 82 83 Pulse Rate from SpO2 Sensor 84 Respiratory Rate 19 15 12 Respiratory Effort / Characteristics Respiratory Depth Respiratory Pattern Blood Pressure 143/86 H 168/101 H 146/76 H Blood Pressure Mean 112 115 97 Blood Pressure Position Pulse Oximetry 97 96 96 Oxygen Delivery Method Room Air Sepsis Recent Fever Within 48 Hours Sepsis New/Unexplained Change in Mental Status Sepsis Action Taken by Nursing 02/20/20 19:44 02/20/20 20:30 02/20/20 21:00 Temperature Temperature Source Pulse Rate 83 86 75 Pulse Rate from SpO2 Sensor 83 87 76 Respiratory Rate 16 19 13 Respiratory Effort / Characteristics Respiratory Depth Respiratory Pattern Blood Pressure 146/76 H 130/79 141/68 H Blood Pressure Mean 97 93 83 Blood Pressure Position Pulse Oximetry 94 95 96 Oxygen Delivery Method Sepsis Recent Fever Within 48 Hours Sepsis New/Unexplained Change in Mental Status Sepsis Action Taken by Care Home Medications Current Medication List: was personally reviewed by me Laboratory Data Attestation: I reviewed the patient's lab results. Result diagrams: 02/20/20 17:15 02/20/20 17:15 Lab Results 02/20/20 02/20/20 02/20/20 Range/Units 17:15 17:15 17:15 WBC (4.8-10.8) K/uL RBC (4.2-5.4) M/uL Hgb (12.0-16.0) g/dL Hct (37-47) % MCV (80-100) fL MCH (25-34) pg MCHC (32-36) g/dL RDW Std Deviation (36.4-46.3) fL RDW Coeff of Alfred (11.5-14.5) % Plt Count (130-400) K/uL MPV (7.4-10.4) fL Immature Gran % (Auto) % Neut % (Auto) % Lymph % (Auto) % [place] % (Auto) % Eos % (Auto) % Baso % (Auto) % Neut # (Auto) (1.4-6.5) K/uL Lymph # (Auto) (1.2-3.4) K/uL [place] # (Auto) (0.11-0.59) K/uL Eos # (Auto) (0-0.5) K/uL Baso # (Auto) (0-0.2) K/uL Immature Gran # (Auto) (0.00-0.02) K/uL PT 10.7 (9.0-12.0) Seconds INR 1.0 (0.9-1.1) APTT 25.8 (21.0-31.0) Seconds PTT Ratio 0.9 D-Dimer 270 (0-500) ug/L FEU VBG pH (7.36-7.41) VBG pCO2 (38-50) mmHg VBG pO2 mmHg VBG HCO3 mmol/L VBG O2 Saturation % VBG Base Excess mEq/L Barometric Pressure mm/Hg Sodium 139 (136-145) mmol/L Potassium 3.8 (3.5-5.1) mmol/L Chloride 109 H (98-107) mmol/L Carbon Dioxide 24 (21-32) mmol/L Anion Gap 6.0 (3-11) BUN 10 (7-18) mg/dl Creatinine 0.94 (0.6-1.2) mg/dl Est Cr Clr Drug Dosing 87.4 ml/min Est GFR ( Amer) 83.7 Est GFR (Non-Af Amer) 72.2 BUN/Creatinine Ratio 10.2 (10-20) Glucose 149 H (70-99) mg/dl Lactate 1.9 (0.4-2.0) mmol/L Calcium 9.2 (8.5-10.1) mg/dl Magnesium 1.8 (1.8-2.4) mg/dl Total Bilirubin 0.4 (0.2-1) mg/dl AST 12 L (15-37) U/L ALT 37 (12-78) U/L Alkaline Phosphatase 107 (45-117) U/L Troponin I < 0.015 (0-0.045) ng/ml Total Protein 7.9 (6.4-8.2) gm/dl Albumin 4.2 (3.4-5.0) gm/dl Globulin 3.7 (2.5-4.0) gm/dl Albumin/Globulin Ratio 1.1 (0.9-2) Adenovirus (PCR) (NotDetected) B. pertussis DNA (PCR) (NotDetected) B.parapertussis DNA PCR (NotDetected) C. pneumoniae DNA (PCR) (NotDetected) Coronavirus OC43 (PCR) (NotDetected) Coronavirus HKU1 (PCR) (NotDetected) Coronavirus 229E (PCR) (NotDetected) COVID-19 Eval Order COVID-19 PCR (Negative) Coronavirus NL63 (PCR) (NotDetected) Human Metapneumovir PCR (NotDetected) Influenza Type A (PCR) (NotDetected) Influ A Molecular Assay (Negative) Influenza Type B (PCR) (NotDetected) Influ B Molecular Assay (Negative) M. pneumoniae (PCR) (NotDetected) Parainfluenza 1 (PCR) (NotDetected) Parainfluenza 2 (PCR) (NotDetected) Parainfluenza 3 (PCR) (NotDetected) Parainfluenza 4 (PCR) (NotDetected) RSV (PCR) (NotDetected) Entero/Rhino (PCR) (NotDetected) 02/20/20 02/20/20 02/20/20 Range/Units 17:15 17:15 17:15 WBC 16.32 H (4.8-10.8) K/uL RBC 5.50 H (4.2-5.4) M/uL Hgb 15.5 (12.0-16.0) g/dL Hct 45.8 (37-47) % MCV 83.3 (80-100) fL MCH 28.2 (25-34) pg MCHC 33.8 (32-36) g/dL RDW Std Deviation 44.5 (36.4-46.3) fL RDW Coeff of Alfred 14.5 (11.5-14.5) % Plt Count 318 (130-400) K/uL MPV 10.0 (7.4-10.4) fL Immature Gran % (Auto) 0.6 % Neut % (Auto) 89.1 % Lymph % (Auto) 8.5 % [place] % (Auto) 1.5 % Eos % (Auto) 0.1 % Baso % (Auto) 0.2 % Neut # (Auto) 14.53 H (1.4-6.5) K/uL Lymph # (Auto) 1.39 (1.2-3.4) K/uL [place] # (Auto) 0.25 (0.11-0.59) K/uL Eos # (Auto) 0.02 (0-0.5) K/uL Baso # (Auto) 0.03 (0-0.2) K/uL Immature Gran # (Auto) 0.10 H (0.00-0.02) K/uL PT (9.0-12.0) Seconds INR (0.9-1.1) APTT (21.0-31.0) Seconds PTT Ratio D-Dimer (0-500) ug/L FEU VBG pH (7.36-7.41) VBG pCO2 (38-50) mmHg VBG pO2 mmHg VBG HCO3 mmol/L VBG O2 Saturation % VBG Base Excess mEq/L Barometric Pressure mm/Hg Sodium (136-145) mmol/L Potassium (3.5-5.1) mmol/L Chloride (98-107) mmol/L Carbon Dioxide (21-32) mmol/L Anion Gap (3-11) BUN (7-18) mg/dl Creatinine (0.6-1.2) mg/dl Est Cr Clr Drug Dosing ml/min Est GFR ( Amer) Est GFR (Non-Af Amer) BUN/Creatinine Ratio (10-20) Glucose (70-99) mg/dl Lactate (0.4-2.0) mmol/L Calcium (8.5-10.1) mg/dl Magnesium (1.8-2.4) mg/dl Total Bilirubin (0.2-1) mg/dl AST (15-37) U/L ALT (12-78) U/L Alkaline Phosphatase (45-117) U/L Troponin I (0-0.045) ng/ml Total Protein (6.4-8.2) gm/dl Albumin (3.4-5.0) gm/dl Globulin (2.5-4.0) gm/dl Albumin/Globulin Ratio (0.9-2) Adenovirus (PCR) (NotDetected) B. pertussis DNA (PCR) (NotDetected) B.parapertussis DNA PCR (NotDetected) C. pneumoniae DNA (PCR) (NotDetected) Coronavirus OC43 (PCR) (NotDetected) Coronavirus HKU1 (PCR) (NotDetected) Coronavirus 229E (PCR) (NotDetected) COVID-19 Eval Order Covid19 Done at [facility] COVID-19 PCR (Negative) Coronavirus NL63 (PCR) (NotDetected) Human Metapneumovir PCR (NotDetected) Influenza Type A (PCR) (NotDetected) Influ A Molecular Assay Negative (Negative) Influenza Type B (PCR) (NotDetected) Influ B Molecular Assay Negative (Negative) M. pneumoniae (PCR) (NotDetected) Parainfluenza 1 (PCR) (NotDetected) Parainfluenza 2 (PCR) (NotDetected) Parainfluenza 3 (PCR) (NotDetected) Parainfluenza 4 (PCR) (NotDetected) RSV (PCR) (NotDetected) Entero/Rhino (PCR) (NotDetected) 02/20/20 02/20/20 02/20/20 Range/Units 17:15 18:14 19:13 WBC (4.8-10.8) K/uL RBC (4.2-5.4) M/uL Hgb (12.0-16.0) g/dL Hct (37-47) % MCV (80-100) fL MCH (25-34) pg MCHC (32-36) g/dL RDW Std Deviation (36.4-46.3) fL RDW Coeff of Alfred (11.5-14.5) % Plt Count (130-400) K/uL MPV (7.4-10.4) fL Immature Gran % (Auto) % Neut % (Auto) % Lymph % (Auto) % [place] % (Auto) % Eos % (Auto) % Baso % (Auto) % Neut # (Auto) (1.4-6.5) K/uL Lymph # (Auto) (1.2-3.4) K/uL [place] # (Auto) (0.11-0.59) K/uL Eos # (Auto) (0-0.5) K/uL Baso # (Auto) (0-0.2) K/uL Immature Gran # (Auto) (0.00-0.02) K/uL PT (9.0-12.0) Seconds INR (0.9-1.1) APTT (21.0-31.0) Seconds PTT Ratio D-Dimer (0-500) ug/L FEU VBG pH 7.42 H (7.36-7.41) VBG pCO2 39 (38-50) mmHg VBG pO2 40 mmHg VBG HCO3 25 mmol/L VBG O2 Saturation 77.3 % VBG Base Excess 0.3 mEq/L Barometric Pressure 736.1 mm/Hg Sodium (136-145) mmol/L Potassium (3.5-5.1) mmol/L Chloride (98-107) mmol/L Carbon Dioxide (21-32) mmol/L Anion Gap (3-11) BUN (7-18) mg/dl Creatinine (0.6-1.2) mg/dl Est Cr Clr Drug Dosing ml/min Est GFR ( Amer) Est GFR (Non-Af Amer) BUN/Creatinine Ratio (10-20) Glucose (70-99) mg/dl Lactate (0.4-2.0) mmol/L Calcium (8.5-10.1) mg/dl Magnesium (1.8-2.4) mg/dl Total Bilirubin (0.2-1) mg/dl AST (15-37) U/L ALT (12-78) U/L Alkaline Phosphatase (45-117) U/L Troponin I (0-0.045) ng/ml Total Protein (6.4-8.2) gm/dl Albumin (3.4-5.0) gm/dl Globulin (2.5-4.0) gm/dl Albumin/Globulin Ratio (0.9-2) Adenovirus (PCR) Not Detected (NotDetected) B. pertussis DNA (PCR) Not Detected (NotDetected) B.parapertussis DNA PCR Not Detected (NotDetected) C. pneumoniae DNA (PCR) Not Detected (NotDetected) Coronavirus OC43 (PCR) Not Detected (NotDetected) Coronavirus HKU1 (PCR) Not Detected (NotDetected) Coronavirus 229E (PCR) Not Detected (NotDetected) COVID-19 Eval Order COVID-19 PCR NEGATIVE Not Detected (Negative) Coronavirus NL63 (PCR) Not Detected (NotDetected) Human Metapneumovir PCR Not Detected (NotDetected) Influenza Type A (PCR) Not Detected (NotDetected) Influ A Molecular Assay (Negative) Influenza Type B (PCR) Not Detected (NotDetected) Influ B Molecular Assay (Negative) M. pneumoniae (PCR) Not Detected (NotDetected) Parainfluenza 1 (PCR) Not Detected (NotDetected) Parainfluenza 2 (PCR) Not Detected (NotDetected) Parainfluenza 3 (PCR) Not Detected (NotDetected) Parainfluenza 4 (PCR) Not Detected (NotDetected) RSV (PCR) Not Detected (NotDetected) Entero/Rhino (PCR) Not Detected (NotDetected) Administered Medications Morphine Sulfate (Morphine Sulfate 4 Mg/Ml 1 Ml Carp\Vial) 4 mg IV Q30M PRN PRN Reason: Pain Stop: 03/05/20 16:33 Last Admin: 02/20/20 20:23 Dose: 4 mg Documented by: [id number] Admin: 02/20/20 17:22 Dose: 4 mg Documented by: [id number] Discontinued Medications Albuterol (Albuterol Hfa 8 Gm Inhaler) 3 puffs INH NOW ONE Stop: 02/20/20 16:35 Last Admin: 02/20/20 17:02 Dose: 3 puffs Documented by: [id number] Diphenhydramine HCl (Diphenhydramine 50 Mg/Ml Vial) 12.5 mg IV NOW STA Stop: 02/20/20 16:35 Last Admin: 02/20/20 17:22 Dose: 12.5 mg Documented by: [id number] Sodium Chloride (Nss 1000ml) 500 mls @ 999 mls/hr IV .Q31M ONE Stop: 02/20/20 17:04 Last Infusion: 02/20/20 17:53 Dose: 0 mls/hr Documented by: [id number] Admin: 02/20/20 17:22 Dose: 999 mls/hr Documented by: [id number] Sodium Chloride (Nss 1000ml) 500 mls @ 999 mls/hr IV .Q31M ONE Stop: 02/20/20 18:49 Last Infusion: 02/20/20 19:04 Dose: 0 mls/hr Documented by: [id number] Admin: 02/20/20 18:33 Dose: 999 mls/hr Documented by: [id number] Ceftriaxone Sodium (Rocephin) 2,000 mg in 70 mls @ 140 mls/hr IV NOW STA Stop: 02/20/20 19:20 Last Infusion: 02/20/20 19:39 Dose: 0 mls/hr Documented by: [id number] Admin: 02/20/20 19:09 Dose: 140 mls/hr Documented by: [id number] Methylprednisolone (Methylprednisolone 125 Mg/2 Ml Vial) 125 mg IV NOW STA Stop: 02/20/20 20:22 Last Admin: 02/20/20 20:45 Dose: 125 mg Documented by: [id number] Methylprednisolone (Methylprednisolone 125 Mg/2 Ml Vial) Confirm Administered Dose 125 mg .ROUTE .STK-MED ONE Stop: 02/20/20 20:42 Last Admin: 02/20/20 20:45 Dose: Not Given Documented by: [id number] Ondansetron HCl (Ondansetron Inj 2 Mg/Ml 2 Ml Vial) 4 mg IV NOW STA Stop: 02/20/20 16:35 Last Admin: 02/20/20 17:22 Dose: 4 mg Documented by: [id number] Imaging Data Radiologist's Impression: XR chest 1V portable CLINICAL HISTORY: Shortness of breath COMPARISON STUDY: No previous studies for comparison. FINDINGS: The heart is normal in size. There is no lobar consolidation. There are equivocal increased markings at the left lung base. While this may be rela pan to technical factors, an early inflammatory process cannot be excluded. Clinical and/or radiographic follow-up is recommended.[ IMPRESSION: 1. No evidence of lobar consolidation. Subtle increased markings at the left lung base potentially related to technical factors. If symptoms persist, radio graphic follow-up is recommended. Discharge Plan Visit Data Chief Complaint: Shortness of Breath/Dyspnea Stated Complaint: sob, cough, back pain ED Provider: Mohan Garcia Discharge Problem: SOB (shortness of breath), Pneumonia, Acute thoracic back pain, Failure of outpatient treatment Patient Disposition: Admitted As Inpatient Condition: Fair Forms Stand Alone Forms: [facility] Prescriptions Prescriptions: No Action lorazepam 1 mg Tablet 1 mg PO DAILY PRN (Reason: Anxiety) RF: 0 multivitamin Capsule 1 cap PO 3XWK RF: 0 cholecalciferol (vitamin D3) [Vitamin D3] 5,000 unit Tablet 5,000 unit PO QAM RF: 0 fluticasone propionate 50 mcg/actuation spray,suspension 1 spray intranasal BID PRN (Reason: Allergy Symptoms) RF: 0 zinc 10 mg Tablet 0 mg PO .TODAY RF: 0 cyclobenzaprine 10 mg tablet 10 mg PO HS PRN (Reason: muscle spasms) RF: 0 potassium chloride 10 mEq capsule, extended release 10 meq PO QAM RF: 0 losartan-hydrochlorothiazide 50-12.5 mg tablet 1 tab PO PM RF: 0 Tradjenta 5 mg tablet 5 mg PO QAM RF: 0 doxycycline hyclate 100 mg capsule 100 mg PO BID 7 Days Qty: 14 RF: 0 prednisone 20 mg tablet 60 mg PO DAILY 5 Days Qty: 15 RF: 0 Referrals Referrals: Aixa Rendon [Primary Care Provider] - Discharge Problem: Pneumonia Qualifiers: Pneumonia type: due to unspecified organism Laterality: bilateral Lung location: unspecified part of lung Qualified Code(s): J18.9 - Pneumonia, unspecified organism Acute thoracic back pain Qualifiers: Back pain laterality: bilateral Qualified Code(s): M54.6 - Pain in thoracic spine
[2020-02-20] MEDS: MoRPHine SULFATE 4 MG/ML 1 ML CARP\\VIAL IV PRN ×2 (17:22→20:23)
[2020-02-20 17:37] LABS: Basophils # (auto) 0.03 K/uL (0-0.2); Basophils % (auto) 0.2 %; Eosinophils # (auto) 0.02 K/uL (0-0.5); Eosinophils % (auto) 0.1 %; Hematocrit (blood only) 45.8 % (37-47); Hemoglobin 15.5 g/dL (12.0-16.0); Immature Granulocytes % (auto) 0.6 %; Lymphocytes # (auto) 1.39 K/uL (1.2-3.4); Lymphocytes % (auto) 8.5 %; Mean Corpuscular Hemoglobin 28.2 pg (25-34); Mean Corpuscular Hgb Conc 33.8 g/dL (32-36); Mean Corpuscular Volume 83.3 fL (80-100); Monocytes # (auto) 0.25 K/uL (0.11-0.59); Monocytes % (auto) 1.5 %; Neutrophils # (auto) 14.53 K/uL (1.4-6.5); Neutrophils % (auto) 89.1 %; Platelet Count 318 K/uL (130-400); RDW Coefficient of Variation 14.5 % (11.5-14.5); RDW Standard Deviation 44.5 fL (36.4-46.3); White Blood Count 16.32 K/uL (4.8-10.8)
[2020-02-20 17:40] LABS: D Dimer 270 ug/L FEU (0-500); Partial Thromboplastin Ratio 0.9; Partial Thromboplastin Time 25.8 Seconds (21.0-31.0); Prothrombin Time 10.7 Seconds (9.0-12.0)
[2020-02-20 17:47] LABS: Alanine Aminotransferase 37 U/L (12-78); Albumin Level 4.2 gm/dl (3.4-5.0); Aspartate Aminotransferase 12 U/L (15-37); BUN Creatinine Ratio 10.2 (10-20); Blood Urea Nitrogen 10 mg/dl (7-18); Calcium 9.2 mg/dl (8.5-10.1); Carbon Dioxide 24 mmol/L (21-32); Chloride 109 mmol/L (98-107); Creatinine Clr Calc Pharmacy 87.4 ml/min; Est GFR (African American) 83.7; Est GFR (Non-African American) 72.2; Glucose 149 mg/dl (70-99); Magnesium 1.8 mg/dl (1.8-2.4); Potassium 3.8 mmol/L (3.5-5.1); Sodium 139 mmol/L (136-145)
[2020-02-20 17:52] LABS: Albumin Globulin Ratio 1.1 (0.9-2); Alkaline Phosphatase 107 U/L (45-117); Bilirubin,Total 0.4 mg/dl (0.2-1); Globulin 3.7 gm/dl (2.5-4.0); Total Protein 7.9 gm/dl (6.4-8.2); Troponin I < 0.015 ng/ml (0-0.045)
--- NOTE | 2020-02-20 18:01 | XRay Report ---
XR chest 1V portable CLINICAL HISTORY: Shortness of breath COMPARISON STUDY: No previous studies for comparison. FINDINGS: The heart is normal in size. There is no lobar consolidation. There are equivocal increased markings at the left lung base. While this may be related to technical factors, an early inflammator y process cannot be excluded. Clinical and/or radiographic follow-up is recommended.[ IMPRESSION: 1. No evidence of lobar consolidation. Subtle increased markings at the left lung base potentially re lated to technical factors. If symptoms persist, radiographic follow-up is recommended. ACT 112: Negative or not required by law. Electronically signed by: Benito Del Real M.D. 02/20/2020 6:00 PM
[2020-02-20 18:10] LABS: Influenza A virus by PCR Negative (Negative); Influenza B virus by PCR Negative (Negative)
[2020-02-20 18:31] LABS: Base Excess VBG 0.3 mEq/L; Oxygen Saturation VBG 77.3 %; pH VBG 7.42 (7.36-7.41)
[2020-02-20] MEDS ORDERED: cefTRIAXone SODIUM 2,000 MG/70 ML BAG IV STA (18:51)
[2020-02-20] MEDS ORDERED: methylPREDNISolone 125 MG/2 ML VIAL IV STA (20:21)
[2020-02-20 20:23] LABS: Adenovirus PCR Not Detected (NotDetected); Bordetella parapertussis PCR Not Detected (NotDetected); Bordetella pertussis PCR Not Detected (NotDetected); Chlamydia pneumoniae PCR Not Detected (NotDetected); Coronavirus 229E PCR Not Detected (NotDetected); Coronavirus CoV-2 (COVID19)PCR Not Detected (NotDetected); Coronavirus HKU1 PCR Not Detected (NotDetected); Coronavirus NL63 PCR Not Detected (NotDetected); Coronavirus OC43PCR Not Detected (NotDetected); Human Metapneumovirus PCR Not Detected (NotDetected); Influenza A PCR Not Detected (NotDetected); Influenza B PCR Not Detected (NotDetected); Mycoplasma pneumoniae PCR Not Detected (NotDetected); Parainfluenza Virus 1 PCR Not Detected (NotDetected); Parainfluenza Virus 2 PCR Not Detected (NotDetected); Parainfluenza Virus 3 PCR Not Detected (NotDetected); Parainfluenza Virus 4 PCR Not Detected (NotDetected); Respiratory Syncytial VirusPCR Not Detected (NotDetected); Rhinovirus/Enterovirus PCR Not Detected (NotDetected)
--- NOTE | 2020-02-20 20:23 | History & Physical Report ---
Date of Service February 20, 2020 Assessment & Plan (1) Asthmatic bronchitis with acute exacerbation: Asthmatic bronchitis with exacerbation/acute thoracic back pain- Give methylprednisolone 125 mg IV x1 now in the ED. Placed on methylprednisolone 60 mg IV every 8 hours, ceftriaxone 2 g IV daily and azithromycin 500 mg IV daily. Duonebs every 4 hours while awake and every 2 hours when necessary. Present on Admission?: Yes (2) Acute thoracic back pain: See above Present on Admission?: Yes (3) Diabetes mellitus: Hold Tradjenta. Placed on Accu-Cheks AC and at bedtime with NovoLog coverage per scale Follow glucose closely while on steroids Present on Admission?: Yes (4) Depression: Anxiety with depression/mood disorder/bipolar disorder- Continue lorazepam as needed Present on Admission?: Yes (5) Anxiety: See above Present on Admission?: Yes (6) Bipolar disorder: See above Present on Admission?: Yes (7) Mood disorder: See above Present on Admission?: Yes (8) History of Clostridioides difficile colitis: Start Florastor 1050 mg daily Present on Admission?: Yes (9) Hypertension: For now, hold lisinopril/HCTZ Present on Admission?: Yes History of Present Illness Chief Complaint: The patient presents to the ED with worsening SOB, fatigue and thoracic chest pain Primary Care Provider: Aixa Rendon The patient is a 45 yo female with a PMH including GERD, Anxiety with depression, bronchitis, gastroparesis, diverticulitis, C diff, mood disorder and bipolar disorder. She initially presented to the emergency department on 02/17/2020 with symptoms of shortness of breath and thoracic pain, that improved with initial treatment in the ED, and had requested to be discharged to home due to wanting to be home for her birthday. She had been discharged on a prednisone taper and doxycycline, however, her symptoms continue to worsen, but she presented to the emergency department again this evening for reassessment. She was COVID-19 negative while in the ED this evening. Allergies Allergy/AdvReac Type Severity Reaction Status Date / Time acetaminophen [From Vicodin] Allergy Severe itching Unverified 02/20/20 19:09 prochlorperazine Allergy Severe COMPAZINE Verified 02/20/20 19:09 quetiapine Allergy Severe TONGUE Verified 02/20/20 19:09 SWELLING tramadol Allergy Severe ITCHING Unverified 02/20/20 19:09 bee venom protein (honey bee) Allergy Unknown severe Verified 02/20/20 19:09 swelling of limbs and lymphnodes hydrocodone Allergy Unknown ITCHING Verified 02/20/20 19:09 meloxicam Allergy Unknown rash/lighth Verified 02/20/20 19:09 eaded risperidone AdvReac Intermediate Verified 02/17/20 19:53 ziprasidone AdvReac Intermediate THRUSH Verified 02/20/20 19:09 clavulanic acid AdvReac Mild VOMITING Verified 02/20/20 19:09 lithium AdvReac Mild prior OD Verified 02/17/20 19:53 Penicillins AdvReac Mild VOMITING Verified 02/17/20 19:53 amoxicillin AdvReac Unknown GI SYMPTOMS Verified 02/17/20 19:53 Home Medications Home Medications Medication Instructions Recorded Confirmed Type lorazepam 1 mg PO DAILY PRN 01/06/18 02/20/20 History multivitamin 1 cap PO 3XWK 01/06/18 02/20/20 History cholecalciferol (vitamin D3) 5,000 unit PO QAM 01/25/19 02/20/20 History [Vitamin D3] fluticasone propionate 1 spray INTRANASAL BID PRN 01/25/19 02/20/20 History cyclobenzaprine 10 mg PO HS PRN 02/17/20 02/20/20 History linagliptin [Tradjenta] 5 mg PO QAM 02/17/20 02/20/20 History losartan-hydrochlorothiazide 1 tab PO PM 02/17/20 02/20/20 History potassium chloride 10 meq PO QAM 02/17/20 02/20/20 History doxycycline hyclate 100 mg PO BID 7 Days #14 cap 02/18/20 02/20/20 Rx prednisone 60 mg PO DAILY 5 Days #15 tab 02/18/20 02/20/20 Rx zinc 0 mg PO .TODAY 02/20/20 02/20/20 History Past Med/Surg History Medical History (Updated 02/21/20 @ 03:45 by Sukh Gomez MD) Anxiety Bipolar disorder Depression Diabetes mellitus Diverticulitis Gastroparesis GERD (gastroesophageal reflux disease) Herpes zoster Hypertension Mood disorder Osteoarthritis Pneumonia Suicidal ideation Surgical History History of arthroscopy LEFT History of bilateral tubal ligation History of delivery X 3 History of cholecystectomy History of colonoscopy History of endoscopic sinus surgery History of esophagogastroduodenoscopy (EGD) History of herniorrhaphy History of left knee surgery History of nasal septoplasty History of tooth extraction Nausea and vomiting after administration of anesthetic agent Vocal cord polyp REMOVED Family History Father Alcohol abuse Diabetes Cardiac disorder Hypertension Prostate cancer Brother Drug abuse Alcohol abuse Mother Family history of diabetes mellitus Bipolar disorder Anxiety Depression Aunt Breast cancer Leukemia Grandfather Lung disease Social History Smoking Status: Current every day smoker Tobacco Type: Cigarettes Cigarettes Per Day: 10; Second Hand Exposure: No; Do You Dip or Chew Tobacco: No; Tobacco Cessation Education Requested by Patient: No Hx Alcohol Use: No Hx Substance Use: No Preferred Language: Frisian Communication Ability: Effective Log Loader Helper Required: No Beliefs That Will Affect Care: None Current Living Situation: Spouse Other Information That Helps Us Care for You: No Feels Safe at Home: Yes Safety Concerns: Feels Safe At This Time Assistive Devices: Glasses Review of Systems Review of Systems: The patient denies palpitations, lower extremity swelling, sore throat, fevers, chills, sweats, nausea, vomiting, diarrhea , constipation, abdominal pain, pelvic pain, blood in urine or stool, dysuria, urinary frequency or urgency, lightheadedness, dizziness, headache, memory loss, loss of consciousness, rash, abnormal bruising or bleeding, imbalance, focal or generalized weakness, numbness or tingling in arms or legs, generalized arthralgias or myalgias, neck pain, or night sweats. The review of systems is otherwise negative other than for that already noted above, and at least 10 systems have been reviewed. Physical Exam Physical Exam: The patient is awake, alert and oriented 3, well developed and well nourished, normocephalic and atraumatic, lying in bed and in no acute distress. HEENT--PERRL, EOMI, mucous membranes and oropharynx normal. Neck--supple. No JVD. No bruits. Thyroid normal, trachea midline, no adenopathy. Heart--normal S1 and S2. No murmurs, rubs or gallops. Lungs--Few coarse breath sounds with wheezes bilaterally. No respiratory d istress, no accessory muscle use. Abdomen--normal bowel sounds and soft. Nontender. Nondistended. Obese Extremities--no cyanosis or clubbing. No edema. Dermatologic--normal skin turgor, normal color, no abnormal lymph nodes, no rash. Neurologic--cranial nerves II through XII grossly intact. Rheumatologic--normal range of motion. Psychiatric--normal affect. Results & Data Results & Data ([facility]) Vital Signs (Past 12 Hours) Vital Signs Temp Pulse Resp BP Pulse Ox 02/20/20 19:44 83 16 146/76 H 94 02/20/20 19:30 83 12 146/76 H 96 02/20/20 19:01 82 15 168/101 H 96 02/20/20 18:35 89 19 143/86 H 97 02/20/20 18:00 82 14 95 02/20/20 17:38 95 02/20/20 17:29 92 H 26 H 171/88 H 97 02/20/20 17:25 95 02/20/20 16:14 98.6 F 118 H 22 189/112 H 96 Laboratory Results Laboratory Results WBC 16.32 K/uL (4.8-10.8) H 02/20/20 17:15 RBC 5.50 M/uL (4.2-5.4) H 02/20/20 17:15 Hgb 15.5 g/dL (12.0-16.0) 02/20/20 17:15 Hct 45.8 % (37-47) 02/20/20 17:15 MCV 83.3 fL (80-100) 02/20/20 17:15 MCH 28.2 pg (25-34) 02/20/20 17:15 MCHC 33.8 g/dL (32-36) 02/20/20 17:15 RDW Std Deviation 44.5 fL (36.4-46.3) 02/20/20 17:15 RDW Coeff of Alfred 14.5 % (11.5-14.5) 02/20/20 17:15 Plt Count 318 K/uL (130-400) 02/20/20 17:15 MPV 10.0 fL (7.4-10.4) 02/20/20 17:15 Immature Gran % (Auto) 0.6 % 02/20/20 17:15 Neut % (Auto) 89.1 % 02/20/20 17:15 Lymph % (Auto) 8.5 % 02/20/20 17:15 [place] % (Auto) 1.5 % 02/20/20 17:15 Eos % (Auto) 0.1 % 02/20/20 17:15 Baso % (Auto) 0.2 % 02/20/20 17:15 Neut # (Auto) 14.53 K/uL (1.4-6.5) H 02/20/20 17:15 Lymph # (Auto) 1.39 K/uL (1.2-3.4) 02/20/20 17:15 [place] # (Auto) 0.25 K/uL (0.11-0.59) 02/20/20 17:15 Eos # (Auto) 0.02 K/uL (0-0.5) 02/20/20 17:15 Baso # (Auto) 0.03 K/uL (0-0.2) 02/20/20 17:15 Immature Gran # (Auto) 0.10 K/uL (0.00-0.02) H 02/20/20 17:15 PT 10.7 Seconds (9.0-12.0) 02/20/20 17:15 INR 1.0 (0.9-1.1) 02/20/20 17:15 APTT 25.8 Seconds (21.0-31.0) 02/20/20 17:15 PTT Ratio 0.9 02/20/20 17:15 D-Dimer 270 ug/L FEU (0-500) 02/20/20 17:15 VBG pH 7.42 (7.36-7.41) H 02/20/20 18:14 VBG pCO2 39 mmHg (38-50) 02/20/20 18:14 VBG pO2 40 mmHg 02/20/20 18:14 VBG HCO3 25 mmol/L 02/20/20 18:14 VBG O2 Saturation 77.3 % 02/20/20 18:14 VBG Base Excess 0.3 mEq/L 02/20/20 18:14 Barometric Pressure 736.1 mm/Hg 02/20/20 18:14 Sodium 139 mmol/L (136-145) 02/20/20 17:15 Potassium 3.8 mmol/L (3.5-5.1) 02/20/20 17:15 Chloride 109 mmol/L (98-107) H 02/20/20 17:15 Carbon Dioxide 24 mmol/L (21-32) 02/20/20 17:15 Anion Gap 6.0 (3-11) 02/20/20 17:15 BUN 10 mg/dl (7-18) 02/20/20 17:15 Creatinine 0.94 mg/dl (0.6-1.2) 02/20/20 17:15 Est Cr Clr Drug Dosing 87.4 ml/min 02/20/20 17:15 Est GFR ( Amer) 83.7 02/20/20 17:15 Est GFR (Non-Af Amer) 72.2 02/20/20 17:15 BUN/Creatinine Ratio 10.2 (10-20) 02/20/20 17:15 Glucose 149 mg/dl (70-99) H 02/20/20 17:15 POC Glucose 192 mg/dl (70-99) H 02/20/20 23:12 Lactate 1.9 mmol/L (0.4-2.0) 02/20/20 17:15 Calcium 9.2 mg/dl (8.5-10.1) 02/20/20 17:15 Magnesium 1.8 mg/dl (1.8-2.4) 02/20/20 17:15 Total Bilirubin 0.4 mg/dl (0.2-1) 02/20/20 17:15 AST 12 U/L (15-37) L 02/20/20 17:15 ALT 37 U/L (12-78) 02/20/20 17:15 Alkaline Phosphatase 107 U/L (45-117) 02/20/20 17:15 Troponin I < 0.015 ng/ml (0-0.045) 02/20/20 17:15 Total Protein 7.9 gm/dl (6.4-8.2) 02/20/20 17:15 Albumin 4.2 gm/dl (3.4-5.0) 02/20/20 17:15 Globulin 3.7 gm/dl (2.5-4.0) 02/20/20 17:15 Albumin/Globulin Ratio 1.1 (0.9-2) 02/20/20 17:15 Adenovirus (PCR) Not Detected (NotDetected) 02/20/20 19:13 B. pertussis DNA (PCR) Not Detected (NotDetected) 02/20/20 19:13 B.parapertussis DNA PCR Not Detected (NotDetected) 02/20/20 19:13 C. pneumoniae DNA (PCR) Not Detected (NotDetected) 02/20/20 19:13 Coronavirus OC43 (PCR) Not Detected (NotDetected) 02/20/20 19:13 Coronavirus HKU1 (PCR) Not Detected (NotDetected) 02/20/20 19:13 Coronavirus 229E (PCR) Not Detected (NotDetected) 02/20/20 19:13 COVID-19 Eval Order Covid19 Done at [facility] 02/20/20 17:15 COVID-19 PCR Not Detected (NotDetected) 02/20/20 19:13 Coronavirus NL63 (PCR) Not Detected (NotDetected) 02/20/20 19:13 Human Metapneumovir PCR Not Detected (NotDetected) 02/20/20 19:13 Influenza Type A (PCR) Not Detected (NotDetected) 02/20/20 19:13 Influ A Molecular Assay Negative (Negative) 02/20/20 17:15 Influenza Type B (PCR) Not Detected (NotDetected) 02/20/20 19:13 Influ B Molecular Assay Negative (Negative) 02/20/20 17:15 M. pneumoniae (PCR) Not Detected (NotDetected) 02/20/20 19:13 Parainfluenza 1 (PCR) Not Detected (NotDetected) 02/20/20 19:13 Parainfluenza 2 (PCR) Not Detected (NotDetected) 02/20/20 19:13 Parainfluenza 3 (PCR) Not Detected (NotDetected) 02/20/20 19:13 Parainfluenza 4 (PCR) Not Detected (NotDetected) 02/20/20 19:13 RSV (PCR) Not Detected (NotDetected) 02/20/20 19:13 Entero/Rhino (PCR) Not Detected (NotDetected) 02/20/20 19:13 Code Status & VTE Plan Code Status Full code VTE Prophylaxis Plan VTE Prophylaxis will be ordered: Yes PG Care Time/CCT Total # of Minutes Spent Total Time Spent with Patient: Total time spent is greater than 50% in coordination of care (as documented) at patient's floor/unit and/or counseling patient: Coding Level of Care Code 62150 Initial Inpt Care Lvl 3 Diagnoses Asthmatic bronchitis with acute exacerbation J45.901 Acute thoracic back pain M54.6 Back pain laterality: bilateral Diabetes mellitus E11.9 Depression F32.9 Anxiety F41.9 Bipolar disorder F31.9 Mood disorder F39 History of Clostridioides difficile colitis Z86.19 Hypertension I10 (1) Acute thoracic back pain Back pain laterality: bilateral Qualified Code(s): M54.6 - Pain in thoracic spine
[2020-02-20] MEDS ORDERED: methylPREDNISolone 125 MG/2 ML VIAL ONE (20:41)
[2020-02-20] MEDS ORDERED: MAGNESIUM HYDROXIDE SUSP 30 ML UDC PO PRN (22:52)
[2020-02-20] MEDS ORDERED: FLUTICASONE PROPIONATE NA SPR 16 GM BTL NAE PRN (22:52)
[2020-02-20] MEDS ORDERED: DEXTROSE 50% 50 ML SYRINGE IV PRN (22:52)
[2020-02-20] MEDS ORDERED: GLUCOSE 10 TABS/TUBE PO PRN (22:52)
[2020-02-20] MEDS ORDERED: GLUCOSE 40% GEL 15 GM TUBE PO PRN (22:52)
[2020-02-20] MEDS ORDERED: ALUMINUM/MAGNESIUM SUSP 30 ML UDC PO PRN (22:52)
[2020-02-20] MEDS ORDERED: CARBOHYDRATES FOR HYPOGLYCEMIA PO PRN (22:52)
[2020-02-20] MEDS ORDERED: ONDANSETRON INJ 2 MG/ML 2 ML VIAL IV PRN (22:52)
[2020-02-20] MEDS ORDERED: GLUCAGON FOR INJ 1 MG VIAL SQ PRN (22:52)
[2020-02-20] MEDS ORDERED: LORazepam 1 MG TAB PO PRN (23:07)
[2020-02-20] MEDS: INSULIN ASPART 100 UNITS/ML 3 ML PEN SC SCH (23:47)
[2020-02-20] MEDS: ENOXAPARIN INJ 40 MG/0.4 ML SYR SQ SCH (23:48)
[2020-02-21] MEDS ORDERED: AZITHROMYCIN 500 MG in DEXTROSE 5% 250 ML IV SCH (04:00)
[2020-02-21] MEDS: methylPREDNISolone 60 MG in SYRINGE 0 ML IV SCH ×2 (04:13→12:18)
[2020-02-21] MEDS: ALBUT/IPRATROP 3MG/0.5MG NEB 3 ML VIAL NEB SCH ×2 (07:34→11:09)
[2020-02-21 07:44] LABS: Basophils # (auto) 0.01 K/uL (0-0.2); Basophils % (auto) 0.1 %; Hematocrit (blood only) 42.9 % (37-47); Hemoglobin 14.2 g/dL (12.0-16.0); Immature Granulocytes # (auto) 0.07 K/uL (0.00-0.02); Immature Granulocytes % (auto) 0.4 %; Lymphocytes # (auto) 1.96 K/uL (1.2-3.4); Lymphocytes % (auto) 10.5 %; Mean Corpuscular Hemoglobin 27.5 pg (25-34); Mean Corpuscular Hgb Conc 33.1 g/dL (32-36); Mean Platelet Volume 10.1 fL (7.4-10.4); Monocytes # (auto) 0.09 K/uL (0.11-0.59); Monocytes % (auto) 0.5 %; Neutrophils # (auto) 16.58 K/uL (1.4-6.5); Neutrophils % (auto) 88.5 %; Platelet Count 306 K/uL (130-400); RDW Coefficient of Variation 14.6 % (11.5-14.5); RDW Standard Deviation 44.4 fL (36.4-46.3); Red Blood Count 5.17 M/uL (4.2-5.4); White Blood Count 18.71 K/uL (4.8-10.8)
[2020-02-21 08:11] LABS: Albumin Level 3.6 gm/dl (3.4-5.0); BUN Creatinine Ratio 17.7 (10-20); Calcium 8.8 mg/dl (8.5-10.1); Creatinine Clr Calc Pharmacy 97.8 ml/min; Est GFR (African American) 95.9; Est GFR (Non-African American) 82.8; Phosphorus 2.9 mg/dl (2.5-4.9); Potassium 3.7 mmol/L (3.5-5.1)
[2020-02-21] MEDS: INSULIN ASPART 100 UNITS/ML 3 ML PEN SC SCH ×2 (08:17→12:17)
[2020-02-21] MEDS: ENOXAPARIN INJ 40 MG/0.4 ML SYR SQ SCH (08:18)
[2020-02-21] MEDS ORDERED: SACCHAROMYCES BOULARDII 250 MG CAP PO SCH (09:00)
[2020-02-21] MEDS ORDERED: MULTIVITAMIN TAB PO SCH (09:00)
[2020-02-21] MEDS ORDERED: CHOLECALCIFEROL 1,000 UNITS 25 MCG TAB PO SCH (09:00)
[2020-02-21] MEDS ORDERED: POTASSIUM CHLORIDE CRTAB 20 MEQ TABCR PO SCH (09:00)
[2020-02-21 09:11] LABS: Estimated Average Glucose 134 mg/dl; Hemoglobin A1C 6.3 % (4.5-5.6)
[2020-02-21] MEDS ORDERED: ALBUTEROL HFA 8 GM INHALER INH PRN (11:46)
[2020-02-21] MEDS ORDERED: IPRATROPIUM BROMIDE HFA INHALER INH PRN (11:49)
[2020-02-21] MEDS ORDERED: IBUPROFEN 200 MG TAB PO PRN (13:29)
--- NOTE | 2020-02-21 15:56 | Electrocardiogram Report ---
Test Reason : Blood Pressure : / mmHG Vent. Rate : 101 BPM Atrial Rate : 101 BPM P-R Int : 136 ms QRS Dur : 092 ms QT Int : 352 ms P-R-T Axes : 029 065 044 degrees QTc Int : 456 ms Poor data quality, interpretation may be adversely affected Sinus tachycardia Otherwise normal ECG When compared with ECG of 17-FEB-2020 19:26, No significant change was found Confirmed by Tima Woodward ([id number]) on 02/21/2020 3:56:11 PM Referred By: REFERRED SELF Confirmed By:Tima Woodward
--- NOTE | 2020-02-21 16:08 | Discharge Summary ---
Date of Service February 21, 2020 Admission HPI Per Admitting Provider The patient is a 45 yo female with a PMH including GERD, Anxiety with depression, bronchitis, gastroparesis, diverticulitis, C diff, mood disorder and bipolar disorder. She initially presented to the emergency department on 02/17/2020 with symptoms of shortness of breath and thoracic pain, that improved with initial treatment in the ED, and had requested to be discharged to home due to wanting to be home for her birthday. She had been discharged on a prednisone taper and doxycycline, however, her symptoms continue to worsen, but she presented to the emergency department again this evening for reassessment. She was COVID-19 negative while in the ED this evening. Principal Diagnosis Pneumonia Discharge Exam Constitutional WD/WN, vitals as above Respiratory normal respiratory effort, lungs clear to auscultation Cardiovascular RRR, no murmur, no edema Gastrointestinal (Abdomen) normal bowel sounds, soft, nontender, no hepatosplenomegaly Musculoskeletal no cyanosis or clubbing, extremities motor strength 5/5 Skin flushed face Neurologic moves all extremities and awake Discharge Data Allergies Allergy/AdvReac Type Severity Reaction Status Date / Time acetaminophen [From Vicodin] Allergy Severe itching Unverified 02/20/20 19:09 prochlorperazine Allergy Severe COMPAZINE Verified 02/20/20 19:09 quetiapine Allergy Severe TONGUE Verified 02/20/20 19:09 SWELLING tramadol Allergy Severe ITCHING Unverified 02/20/20 19:09 bee venom protein (honey bee) Allergy Unknown severe Verified 02/20/20 19:09 swelling of limbs and lymphnodes hydrocodone Allergy Unknown ITCHING Verified 02/20/20 19:09 meloxicam Allergy Unknown rash/lighth Verified 02/20/20 19:09 eaded risperidone AdvReac Intermediate Verified 02/17/20 19:53 ziprasidone AdvReac Intermediate THRUSH Verified 02/20/20 19:09 clavulanic acid AdvReac Mild VOMITING Verified 02/20/20 19:09 lithium AdvReac Mild prior OD Verified 02/17/20 19:53 Penicillins AdvReac Mild VOMITING Verified 02/17/20 19:53 amoxicillin AdvReac Unknown GI SYMPTOMS Verified 02/17/20 19:53 Consultations 02/20/20 18:53 ED Decision to Admit Stat Hospital Course (1) Pneumonia: Patient initially presented to the ED on 02/16 for sob at which time her D- dimer was elevated so a CTA was done. No PE was found. CT did show diffuse bilateral groundglass opacities. This may represent a viral pneumonia. COVID test was negative. Patient felt she would prefer to go home than be admitted and was discharged with doxycycline and steroids. She returned due to sob. Give methylprednisolone 125 mg in the ED and then methylprednisolone 60 mg IV every 8 hours, ceftriaxone 2 g IV daily and azithromycin 500 mg IV daily. Duonebs every 4 hours while awake and every 2 hours when necessary. Because she was having facial flushing and it was unclear if it was due to the antibiotics received at the hospital, she was discharged with Levaquin. She will also complete a 6 day steroid taper. (2) Acute thoracic back pain: See above (3) Diabetes mellitus: Held Tradjenta while inpatient, resume for home. (4) Depression: Anxiety with depression/mood disorder/bipolar disorder- Continue lorazepam as needed (5) Anxiety: See above (6) Bipolar disorder: See above (7) Mood disorder: See above (8) History of Clostridioides difficile colitis: continue probiotic while on antibiotics (9) Hypertension: Resume lisinopril/HCTZ for home (10) Fatty liver: As seen on CT. Follow up with pcp Total Time Total Time Spent Total Time Spent (In Minutes): greater than 30 minutes Discharge Plan Discharge Items Patient Disposition: Home - Self-Care Reason For Visit: Asthma Exacerbation Discharge Diagnosis: Pneumonia Condition on Discharge: Fair Activity: Resume your previous activity Activity Comment: gradually as tolerated Non-emergency contact: Primary Care Provider Call non-emergency contact if: you have any medication questions and your symptoms worsen Follow-up/Referrals: Aixa Rendon [Primary Care Provider] - (follow up one week ) Diet: Carb Consistent or DM2 Addtl Attending Provider Instructions: You were given methylprednisolone, ceftriaxone and azithromycin while you were here. Because it was unclear which of these medications was causing your skin flushing, your antibiotic will be switched to levofloxacin for home. You should start the levofloxacin tomorrow. You should take the inhaler from the hospital with you. You can take this every 4 hours, 2 puffs for wheezing and shortness of breath. You will also take a prednisone taper as follows: 40mg x 3 days, 20mg x 3 days, 10mg x 3 days Be sure to check your blood sugars frequently while taking steroids and call your doctor if you are consistently above 250 for your readings. Because you have a history of C diff, you should take a probiotic while you are taking the antibiotic. Your CTA on 02/16 also had an incidental finding of fatty liver. I have attached some information on this and you should follow up with your doctor. Pending Studies at Discharge: Yes Studies:: blood cultures Stand-Alone Forms: My [facility], Smoking Cessation Medications and DC Order Prescriptions: New prednisone 20 mg tablet 20 mg PO DAILY Qty: 11 RF: 0 levofloxacin 750 mg tablet 750 mg PO DAILY 4 Days Qty: 4 RF: 0 albuterol sulfate [Ventolin HFA] 90 mcg/actuation Hfa Aerosol Inhaler 2 puff inhalation QID PRN (Reason: shortness of breath or wheezing) Qty: 1 RF: 0 Continued lorazepam 1 mg Tablet 1 mg PO DAILY PRN (Reason: Anxiety) RF: 0 multivitamin Capsule 1 cap PO 3XWK RF: 0 cholecalciferol (vitamin D3) [Vitamin D3] 5,000 unit Tablet 5,000 unit PO QAM RF: 0 fluticasone propionate 50 mcg/actuation spray,suspension 1 spray intranasal BID PRN (Reason: Allergy Symptoms) RF: 0 zinc 10 mg Tablet 0 mg PO .TODAY RF: 0 potassium chloride 10 mEq capsule, extended release 10 meq PO QAM RF: 0 losartan-hydrochlorothiazide 50-12.5 mg tablet 1 tab PO PM RF: 0 Tradjenta 5 mg tablet 5 mg PO QAM RF: 0 Discontinued cyclobenzaprine 10 mg tablet 10 mg PO HS PRN (Reason: muscle spasms) RF: 0 doxycycline hyclate 100 mg capsule 100 mg PO BID 7 Days Qty: 14 RF: 0 prednisone 20 mg tablet 60 mg PO DAILY 5 Days Qty: 15 RF: 0 Discharge Orders: Discharge Order (Routine); Ordered 02/21/20 Ordered By: Tiffanie Boogie/Other Patient Handouts: Nonalcoholic Fatty Liver Disease NAFLD, Eating Heart-Healthy Foods, A1C Admission Data Admit Date/Time: 02/20/20 20:21 Attending Provider: Don Medina Admit Provider: Sukh Gomez Primary Care Provider: Aixa Rendon Other Providers: Sukh Gomez Coding Level of Care Code D/C Day Management >30 mins Diagnoses Pneumonia J18.9 Laterality: bilateral Lung location: unspecified part of lung Pneumonia type: due to unspecified organism Acute thoracic back pain M54.6 Back pain laterality: bilateral Diabetes mellitus E11.9 Depression F32.9 Anxiety F41.9 Bipolar disorder F31.9 Mood disorder F39 History of Clostridioides difficile colitis Z86.19 Hypertension I10 Fatty liver K76.0
[2020-02-21] MEDS ORDERED: cefTRIAXone SODIUM 2,000 MG in DEXTROSE 5% 50 ML IV SCH (18:00)
== END 2020-02-21 17:28 | disposition home or self-care (01) ==
LOC: ED 16:05 → INTOOBSV 20:21 → SUATTDRO 20:21 → 2S 20:21